=== PATIENT | female | born 1980 | race Two or more races ===

== ENCOUNTER 2017-02-01 17:02 | Emergency (ER) | payer MEDICAID ==
[2017-02-01 17:19] VITALS: BP 108/66
--- NOTE | 2017-02-01 17:26 | ER Document Report ---
ED Medical Screen (RME) - General Chief Complaint: Vaginal Bleeding Stated Complaint: VAGINAL BLEEDING Notes: 36-year-old female patient is 10 weeks started this afternoon with vaginal bleeding and pelvic pain. I have greeted and performed a rapid initial assessment of this patient. A comprehensive ED assessment and evaluation of the patient, analysis of test results and completion of the medical decision making process will be conducted by additional ED providers. TRAVEL OUTSIDE OF THE [place] IN LAST 30 DAYS: No - Related Data Allergies/Adverse Reactions: No Known Allergies Allergy (Unverified 02/01/17 17:16) Past Medical History Renal/ Medical History: Denies: Hx Peritoneal Dialysis Physical Exam - Vital signs Vitals: Temp Pulse Resp BP Pulse Ox 97.9 F 79 18 108/66 99 02/01/17 17:16 02/01/17 17:16 02/01/17 17:16 02/01/17 17:16 02/01/17 17:16 Course - Vital Signs Vital signs: Temp Pulse Resp BP Pulse Ox 97.9 F 79 18 108/66 99 02/01/17 17:16 02/01/17 17:16 02/01/17 17:16 02/01/17 17:16 02/01/17 17:16
[2017-02-01 17:52] LABS: ABSOLUTE LYMPHOCYTES (AUTO) 2.3 10^3/uL (0.5-4.7); ABSOLUTE MONOCYTES (AUTO) 0.5 10^3/uL (0.1-1.4); ABSOLUTE NEUT (AUTO) 6.2 10^3/uL (1.7-8.2); BASOPHILS % (AUTO) 0.2 % (0-2); EOSINOPHILS % (AUTO) 0.5 % (0-6); HEMATOCRIT 35.1 % (36.0-47.0); HEMOGLOBIN 11.9 g/dL (12.0-15.5); HGB HCT DIFFERENCE 0.6; LYMPHOCYTES % (AUTO) 25.1 % (13-45); MEAN CORPUSCULAR HEMOGLOBIN 28.5 pg (27.0-33.4); MEAN CORPUSCULAR HGB CONC 33.9 g/dL (32.0-36.0); MEAN CORPUSCULAR VOLUME 84 fl (80-97); MONOCYTES % (AUTO) 5.2 % (3-13); RED BLOOD COUNT 4.16 10^6/uL (3.72-5.28); RED CELL DISTRIBUTION WIDTH 14.2 % (11.5-14.0)
[2017-02-01 17:54] LABS: APPEARANCE,URINE CLEAR; BILIRUBIN,URINE NEGATIVE (NEGATIVE); GLUCOSE, URINE NEGATIVE (NEGATIVE); KETONES,URINE NEGATIVE (NEGATIVE); LEUKOCYTE ESTERASE,URINE NEGATIVE (NEGATIVE); NITRITE,URINE NEGATIVE (NEGATIVE); PROTEIN,URINE NEGATIVE (NEGATIVE); URINE SPECIFIC GRAVITY 1.003; UROBILINOGEN,URINE NEGATIVE mg/dL (<2.0)
[2017-02-01 18:08] LABS: ALANINE AMINOTRANSFERASE 22 U/L (9-52); ALBUMIN 3.9 g/dL (3.5-5.0); ALKALINE PHOSPHATASE 78 U/L (38-126); ANION GAP 10 (5-19); ASPARTATE AMINO TRANSFERASE 17 U/L (14-36); BILIRUBIN,DIRECT 0.1 mg/dL (0.0-0.4); BILIRUBIN,TOTAL 0.4 mg/dL (0.2-1.3); BLOOD UREA NITROGEN 9 mg/dL (7-20); CALCIUM 9.3 mg/dL (8.4-10.2); CARBON DIOXIDE 23 mmol/L (22-30); CHLORIDE 106 mmol/L (98-107); CREATININE RESULT 0.59 mg/dL (0.52-1.25); GLUCOSE 85 mg/dL (75-110); POTASSIUM 3.9 mmol/L (3.6-5.0); SODIUM 139.3 mmol/L (137-145)
== END 2017-02-01 19:07 | disposition left against medical advice (07) ==
LOC: ER 17:02
DX: O20.9 Hemorrhage in early pregnancy, unspecified (principal); Z3A.10 10 weeks gestation of pregnancy
CPT/HCPCS: 36415; 80053; 81001; 84702; 85025; 86900; 86901; 99281

== ENCOUNTER 2017-02-02 18:02 | Emergency (ER) | payer SELFPAY ==
--- NOTE | 2017-02-02 19:18 | ER Document Report ---
ED GI/ - General Chief Complaint: Pelvic Pain Stated Complaint: ABDOMINAL PAIN Time seen by provider: 19:18 Mode of Arrival: Ambulatory Information source: Patient TRAVEL OUTSIDE OF THE [place] IN LAST 30 DAYS: No - HPI Patient complains to provider of: Pelvic pain Onset: Yesterday Timing/Duration: Gradual Quality of pain: Cramping Severity at maximum: Moderate Severity in ED: Moderate Pain Level: 3 Location: Pelvis Vaginal bleeding (Compared to normal period): Spotting Menstrual period history: Associated symptoms: denies: Dysuria, Fever, Nausea, Vomiting Exacerbated by: Denies Relieved by: Denies Similar symptoms previously: Yes Recently seen / treated by doctor: Yes Notes: 02/02/17 19:19 Patient is a 36-year-old female, , who presents to the emergency room reporting that she is approximately 10 weeks and having pelvic pain, she denies nausea or vomiting, no dysuria hematuria, no fever or chills, she had some vaginal spotting yesterday which has resolved, she actually came to the emergency room yesterday and left before completion of treatment, as she had to get home and take care of her kids, she has been seen at the health department during this but not by RESIDENTIAL INSTALLER yet - Related Data Allergies/Adverse Reactions: No Known Allergies Allergy (Unverified 02/01/17 17:16) Past Medical History - General Information source: Patient - Social History Smoking Status: Unknown if Ever Smoked Family History: Reviewed & Not Pertinent Patient has suicidal ideation: No Patient has homicidal ideation: No Renal/ Medical History: Denies: Hx Peritoneal Dialysis Review of Systems - Review of Systems Constitutional: No symptoms reported EENT: No symptoms reported Cardiovascular: No symptoms reported Respiratory: No symptoms reported Gastrointestinal: No symptoms reported Genitourinary: No symptoms reported Female Genitourinary: See HPI Musculoskeletal: No symptoms reported Skin: No symptoms reported Hematologic/Lymphatic: No symptoms reported Neurological/Psychological: No symptoms reported -: Yes All other systems reviewed and negative Physical Exam - Vital signs Vitals: Temp Pulse Resp BP Pulse Ox 97.8 F 93 16 104/59 L 99 02/02/17 18:26 02/02/17 18:26 02/02/17 18:26 02/02/17 18:26 02/02/17 18:26 Interpretation: Normal - General General appearance: Appears well, Alert - HEENT Head: Normocephalic, Atraumatic Eyes: Normal Pupils: PERRL - Respiratory Respiratory status: No respiratory distress Chest status: Nontender Breath sounds: Normal Chest palpation: Normal - Cardiovascular Rhythm: Regular Heart sounds: Normal auscultation Murmur: No - Abdominal Inspection: Normal Distension: No distension Bowel sounds: Normal Tenderness: Tender - Suprapubic/pelvic Organomegaly: No organomegaly - Back Back: Normal, Nontender - Extremities General upper extremity: Normal inspection, Nontender, Normal color, Normal ROM , Normal temperature General lower extremity: Normal inspection, Nontender, Normal color, Normal ROM , Normal temperature, Normal weight bearing. No: Tonja's sign - Neurological Neuro grossly intact: Yes Cognition: Normal Orientation: AAOx4 Patti Coma Scale Eye Opening: Spontaneous [place] Coma Scale Verbal: Oriented [place] Coma Scale Motor: Obeys Commands [place] Coma Scale Total: 15 Speech: Normal Motor strength normal: LUE, RUE, LLE, RLE Sensory: Normal - Psychological Associated symptoms: Normal affect, Normal mood - Skin Skin Temperature: Warm Skin Moisture: Dry Skin Color: Normal Course - Re-evaluation Re-evalutation: 02/02/17 21:07 Laboratory findings from yesterday were reviewed and discussed with patient, imaging findings discussed with patient at bedside today, are positive for IUP, good heart rate good movement, patient was given information for follow-up with [facility]IDENT[facility]STALL[facility], advised to return if symptoms worsen, with this plan - Vital Signs Vital signs: Temp Pulse Resp BP Pulse Ox 98.0 F 70 18 106/57 L 100 02/02/17 20:59 02/02/17 20:59 02/02/17 20:59 02/02/17 20:59 02/02/17 20:59 Discharge - Discharge Clinical Impression: Pelvic pain affecting Condition: Stable Disposition: HOME, SELF-CARE Instructions: Pelvic Pain in and Round Ligament Pain ([facility]), Pelvic Pain in ([facility]), Pelvic Pain ([facility]), Ob-Cab Driver Doctors Additional Instructions: Follow-up with RESIDENTIAL INSTALLER in 2-3 days. Return to the emergency room immediately if symptoms worsen or any additional concerns.
[2017-02-02 21:01] VITALS: BP 106/57
== END 2017-02-02 21:06 | disposition home or self-care (01) ==
LOC: ER 18:02
DX: O26.899 Other specified pregnancy related conditions, unspecified trimester (principal); R10.2 Pelvic and perineal pain; Z3A.00 Weeks of gestation of pregnancy not specified
CPT/HCPCS: 76801; 99284

== ENCOUNTER → 2017-04-01 | Outpatient (CLI) | payer MEDICAID ==
--- NOTE | 2017-04-01 16:32 | RADIOLOGY REPORT (SQ) ---
EXAM DESCRIPTION: U/S OB 14+ TRNABD 1GES W/O DOP COMPLETED DATE/TIME: 04/01/2017 3:58 pm REASON FOR STUDY: ENCOUNTER FOR SUPERVISION OF NORMAL Z34.82 ENCOUNTER FOR SUPRVSN OF NOR MAL , SECOND TRI COMPARISON: None. TECHNIQUE: Static and Dynamic grayscale imaging performed of gravid uterus using transabdominal and endovaginal approach. Additional selected color Doppler and spectral images recorded. All stored on PACS. LIMITATIONS: None. FINDINGS: EGA: 20 weeks 3 days MKIE: 08/16/2017 EFW: 343 g PERCENTILE: Not calculated, fetus less than or equal to 20 weeks gestation CARMEN: Adequate PLACENTA: Low lying and posterior. There is a succinturate placental lobule along the ventral aspect of the lower uterine segment. PRESENTATION: Variable ANATOMY: HEART RATE: 131 beats per minute. FOUR CHAMBER HEART: Visualized. THREE VESSEL CORD: Yes. CORD INSERTION: Visualized. KIDNEYS AND BLADDER: Visualized. Appear normal. STOMACH: Visualized. Appears normal. SPINE: Normal as visualized. BRAIN AND LATERAL VENTRICLES: Visualized. Appear normal. OTHER: No other significant finding. MATERNAL ADNEXA: Maternal ovaries not visualized. CERVICAL LENGTH: 3.5 cm in length. The patient is , the internal cervical os on endovaginal sca nning is open with mild funneling. This report was called to Zuri Shirley at the [facility] . OTHER: No other significant finding. IMPRESSION: LIVING INTRAUTERINE . ESTIMATED GESTATIONAL AGE 20 weeks 3 days Low-lying posterior placenta with succenturiate lobe anteriorly along the lower uterine segment. Funneling of the internal cervical os Results discussed with Zuri Shirley at the [facility], 1445 hours 04/01/2017 as above. Trimester of : Second trimester - 13 weeks 1 day to 27 weeks 6 days. TECHNICAL DOCUMENTATION: JOB ID: [id number] [employer]- All Rights Reserved
== END ==
LOC: RAD 13:55
PROVIDERS: ATTEND Nurse Practitioner Women's Health
DX: O44.42 Low lying placenta NOS or without hemorrhage, second trimester (principal); O43.192 Other malformation of placenta, second trimester; Z3A.20 20 weeks gestation of pregnancy
CPT/HCPCS: 76805

== ENCOUNTER → 2017-04-13 | Outpatient (CLI) | payer MEDICAID ==
--- NOTE | 2017-04-13 12:04 | RADIOLOGY REPORT (SQ) ---
EXAM DESCRIPTION: U/S OB LIMITED COMPLETED DATE/TIME: 04/13/2017 11:52 am REASON FOR STUDY: ENCOUNTER FOR SUPERVISON OF OTHER NORMAL , SECOND TRIMESTER Z34.82 ENCO UNTER FOR SUPRVSN OF NORMAL , SECOND TRI COMPARISON: 04/01/2017 TECHNIQUE: Limited transvaginal and transabdominal grayscale ultrasound for evaluation of specific r equested obstetrical parameters. LIMITATIONS: None. FINDINGS: CERVICAL LENGTH: Lower 2/3 of the cervix is closed, 3 cm in length. Upper 3rd of the cerv ix demonstrates fluid at the internal os without funneling, similar compared to 04/01/2017. Posterior placenta grade 1 extends up to the internal cervical os without previa. FHR: 147 beats per minute. PRESENTATION: Breech, mobile OTHER: No other significant findings. IMPRESSION: The lower 2/3 of the cervix is closed, 3 cm in length. Upper 3rd of the cervix demonstr ates fluid or mucous at the internal os without funneling. No ultrasound evidence of placenta previa Fetus variable orientation Trimester of : Third trimester - 28 weeks to delivery. TECHNICAL DOCUMENTATION: JOB ID: [id number] [employer]- All Rights Reserved
== END ==
LOC: RAD 10:32
PROVIDERS: ATTEND Nurse Practitioner Women's Health
DX: Z34.82 Encounter for supervision of other normal pregnancy, second trimester (principal)
CPT/HCPCS: 76815

== ENCOUNTER 2017-08-11 22:28 | Inpatient (IN) | payer MEDICAID ==
[2017-08-11 23:26] LABS: APPEARANCE,URINE CLEAR; BILIRUBIN,URINE NEGATIVE (NEGATIVE); GLUCOSE, URINE NEGATIVE (NEGATIVE); KETONES,URINE NEGATIVE (NEGATIVE); LEUKOCYTE ESTERASE,URINE NEGATIVE (NEGATIVE); NITRITE,URINE NEGATIVE (NEGATIVE); PROTEIN,URINE NEGATIVE (NEGATIVE); URINE SPECIFIC GRAVITY 1.004; UROBILINOGEN,URINE NEGATIVE mg/dL (<2.0)
[2017-08-11 23:43] LABS: URINE BARBITURATES SCREEN NEGATIVE; URINE METHADONE SCREEN NEGATIVE; URINE OPIATES LOW NEGATIVE; URINE PHENCYCLIDINE SCREEN NEGATIVE
[2017-08-12] MEDS ORDERED: OXYTOCIN/NORMAL SALINE 0 UNIT/0 ML RTUINJ ONE (02:20)
[2017-08-12] MEDS ORDERED: OXYTOCIN/NORMAL SALINE 20 UNIT/1,000 ML RTUINJ IV PRN ×2 (02:23→10:35)
[2017-08-12 02:51] LABS: HEMATOCRIT 32.8 % (36.0-47.0); HEMOGLOBIN 11.3 g/dL (12.0-15.5); HGB HCT DIFFERENCE 1.1; MEAN CORPUSCULAR HEMOGLOBIN 29.5 pg (27.0-33.4); MEAN CORPUSCULAR HGB CONC 34.6 g/dL (32.0-36.0); MEAN CORPUSCULAR VOLUME 85 fl (80-97); RED BLOOD COUNT 3.84 10^6/uL (3.72-5.28); RED CELL DISTRIBUTION WIDTH 14.7 % (11.5-14.0); WHITE BLOOD COUNT 9.8 10^3/uL (4.0-10.5)
[2017-08-12] MEDS ORDERED: EPHEDRINE SULFATE INJ 50 MG/1 ML AMPULE ONE (03:10)
[2017-08-12] MEDS ORDERED: FENTANYL/BUPIVACAINE/NS/PF 200 MCG/100 ML RTUINJ EPI ONE (03:11)
[2017-08-12] MEDS ORDERED: BUPIVACAINE HCL 0.25 % INJ/PF (2.5 MG/1 ML) 30 ML VIAL ONE (03:11)
[2017-08-12 03:14] LABS: BAND NEUTROPHILS % (MANUAL) 2 % (3-5); BASOPHILS % (MANUAL) 0 % (0-2); EOSINOPHILS % (MANUAL) 0 % (0-6); LYMPHOCYTES % (MANUAL) 32 % (13-45); TOTAL CELLS COUNTED 100
[2017-08-12 03:17] LABS: ANISOCYTOSIS SLIGHT; POLYCHROMASIA SLIGHT; TOXIC GRANULATION SLIGHT; TOXIC VACUOLATION PRESENT
[2017-08-12] MEDS: RINGERS SOLUTION,LACTATED 1,000 ML IV PRN ×2 (04:21→04:30)
[2017-08-12] MEDS ORDERED: MISOPROSTOL 0.2 MG TABLET ONE (05:42)
[2017-08-12] MEDS ORDERED: LIDOCAINE 1% INJ-PF (10 MG/ML) 30 ML SDV ONE (05:42)
[2017-08-12] MEDS ORDERED: OXYTOCIN/NORMAL SALINE 20 UNIT/1,000 ML RTUINJ ONE (05:43)
[2017-08-12] MEDS ORDERED: DEXTROSE 5%-LACTATED RINGERS 200 ML IV PRN (05:58)
[2017-08-12] MEDS ORDERED: PENICILLIN G-K 5 MILLION UNIT VIAL ONE (08:14)
[2017-08-12] MEDS ORDERED: IBUPROFEN 800 MG TABLET ONE (09:41)
--- NOTE | 2017-08-12 10:07 | Delivery Summary ---
Del Sum A-C Datetime Report Generated by CPN: 08/12/2017 10:07 DELIVERY PERSONNEL DELIVERY PERSONNEL: [id number] Delivery Doctor:: Karla Kate CNM Labor and Delivery Nurse:: Sunitha Sargent RNpharmacy director Nurse:: RONNIE Pruitt Student Observers:: Loretta SCOTT Early Childhood/CELLAR HAND: Nini Lujan CNA II Additional Personnel: : Estela Ray RN MATERNAL INFORMATION Delivery Anesthesia: Epidural Medications After Delivery: Pitocin Bolus-Please Comment; Cytotec 800mcg Per Rectum/Vagina Meds After Delivery Comment: Pitocin 20 units in 1000 ml nss open for bolus Estimated Blood Loss (ml): 300 Maternal Complications: None Provider Comments: SVDVM over intact perineum with epidural anesthesia. vigorous, to mothers abd. Cord clamped x2 cut per FOB, Placenta intact via [place]. Cytotec placed rectally 800mg. Apgars 9,9. EBL 300. Mother and infant stable. No lacs. GBS unknown. LABOR SUMMARY EDC: 08/18/2017 00:00 No. Babies in Womb: 1 Attempted: No Labor Anesthesia: Epidural LABOR INFORMATION Reason for Induction: Not Applicable Onset of Labor: 08/11/2017 22:00 Complete Dilatation: 08/12/2017 08:18 Oxytocin: Augmentation Group B Beta Strep: negative Antibiotics # of Doses: none Antibiotics Time of Last Dose: n/a Name of Antibiotic Given: n/a Steroids Given: None Reason Steroids Not Administered: Not Applicable; Patient Refused MEMBRANES Membranes Rupture Method: Spontaneous Rupture of Membranes: 08/12/2017 06:28 Length of Rupture (hr): 1.97 Amniotic Fluid Color: Clear Amniotic Fluid Amount: Small Amniotic Fluid Odor: Normal STAGES OF LABOR Stage 1 hr: 10 Stage 1 min: 18 Stage 2 hr: 0 Stage 2 min: 8 Stage 3 hr: 0 Stage 3 min: 6 Total Time in Labor hr: 10 Total Time in Labor min: 32 VAGINAL DELIVERY Episiotomy: None Laceration #1: None Laceration Extension #1: N/A Laceration Repair: Not Applicable Laceration Repair Note: none needed Sponge Count Correct: N/A Sharps Count Correct: N/A CSECTION DELIVERY Primary Indication: N/A Secondary Indication: N/A CSection Incidence: N/A Labor: N/A Elective: N/A CSection Incision: N/A BABY A INFORMATION Delivery Date/Time: 08/12/2017 08:26 Method of Delivery: Vaginal Born in Route : No : N/A Forceps: N/A Vacuum Extraction: Successful Shoulder Dystocia : No PRESENTATION/POSITION BABY A Presentation: Cephalic Cephalic Presentation: Vertex Vertex Position: Right Occipital Anterior Breech Presentation: N/A PLACENTA INFORMATION BABY A Placenta Delivery Time : 08/12/2017 08:32 Placenta Method of Delivery: Spontaneous Placenta Status: Delivered SCORES BABY A Heart Rate 1 min: >100 bpm Resp Effort 1 min: Good Cry Reflex Irritability 1 min: Cough or Sneeze or Pulls Away Muscle Tone 1 min: Active Motion Color 1 min: Body [place], Extremities Blue Resuscitation Effort 1 min: Tactile Stimulation SCORE 1 MIN: 9 Heart Rate 5 min: >100 bpm Resp Effort 5 min: Good Cry Reflex Irritability 5 min: Cough or Sneeze or Pulls Away Muscle Tone 5 min: Active Motion Color 5 min: Body [place], Extremities Blue Resuscitation Effort 5 min: N/A SCORE 5 MIN: 9 Resuscitation Effort 10 min: N/A INFANT INFORMATION BABY A Gestational Age at Delivery: 39.1 Gestational Status: Full Term- 39- 40.6 Weeks Infant Outcome : Liveborn Condition : Stable Sex: Male IDENTIFICATION BABY A Verification Date/Time: 08/12/2017 08:57 ID Band Number: [id number] Mother's Name Verified: Yes RN Verifying Infant: A. Sargent RN S. Camp RNC WEIGHT/LENGTH BABY A Infant Length (in): 20.00 Infant Length (cm): 50.80 CORD INFORMATION BABY A No. Cord Vessels: 3 Nuchal Cord : N/A Nuchal Cord- Other: short cord Cord Blood Taken: Yes-For Storage (Mom's Blood type +) Infant Suction: None ASSESSMENT BABY A Complications: None Physical Findings at Delivery: Within Normal Limits Respirations: Appears Normal Skin to Skin: Yes Skin to Skin Time (min): 60 Online Content Editor/ALS Called : No Infant Care By: M Cory RN Transferred To: Remains with Mother BABY B INFORMATION : N/A SIGNATURES Assignment: Yann Andre MD Signature: with User ID: [email or web address] : I was personally available for consultation and serving as supervising physician for the MLP.
[2017-08-12] MEDS ORDERED: BENZOCAINE/MENTHOL AEROSOL SPRAY 56 ML TOP PRN (10:35)
[2017-08-12] MEDS ORDERED: DIBUCAINE 1% OINTMENT 28 GM TP PRN (10:35)
[2017-08-12] MEDS ORDERED: ZOLPIDEM TARTRATE 5 MG TABLET PO PRN (10:35)
[2017-08-12] MEDS ORDERED: MEASLES,MUMPS&RUBELLA VACC/PF 0.5 ML VIAL SUBCUT PRN (10:35)
[2017-08-12] MEDS ORDERED: DIPH/PERTUSS(ACELL)/TETANUS VAC/PF 0.5 ML SYR (>=10YO) IM PRN (10:35)
[2017-08-12] MEDS ORDERED: ACETAMINOPHEN WITH CODEINE #3 TABLET PO PRN (10:35)
--- NOTE | 2017-08-12 11:11 | Admission Physical ---
Datetime Report Generated by CPN: 08/12/2017 11:10 CURRENT ADMISSION Chief Complaint: Uterine Contractions Indication for Induction: Not Applicable Indication for Induction: Term, Intrauterine Admit Impression- Other: keep for Augmentation as patient is a grandmultip and lives >15 min from hospital. concern for precipitous delivery Admit Plan: Admit to Unit; Initiate Labor Augmentation Protocol ALLERGIES Medication Allergies: No Medication Allergies: No Known Allergies (08/12/2017) Medication Allergies: No Known Allergies (02/01/2017) Latex: No Latex Allergies Food Allergies: N/A Environmental Allergies: N/A OBSTETRICAL HISTORY EDC: 08/18/2017 00:00 : 7 Para: 5 Term: 5 SAB: 1 Livin Cesareans: 0 Gestational Diabetes: No Rh Sensitization: No Incompetent Cervix: No MANGO: No Infertility: No ART Treatment: No Uterine Anomaly: No IUGR: No Hx Previous C/S: No Macrosomia: No Hx Loss/Stillborn: No PIH: No Hx : No Placenta Previa/Abruption: No Depression/PP Depression: No PTL/PROM: No Post Hemorrhage: No Current Procedures: Ultrasound Obstetrical History Comments: G1- G2- G3- G4- SAB G5- G6- G7- current SEE RECORDS Alcohol: No Marijuana : No Cocaine: No Other Illicit Drugs: No Cigarettes: Never Smoker. [id number] MEDICAL HISTORY Diabetes: No Blood Transfusion: No Pulmonary Disease (Asthma, TB): No Breast Disease: No Hypertension: No Surgery Consultant Surgery: No Heart Disease: No Hosp/Surgery: No Autoimmune Disorder: No Anesthetic Complications: No Kidney Disease: No Abnormal Pap Smear: No Neuro/Epilepsy: No Psychiatric Disorders: No Other Medical Diseases: No Hepatitis/Liver Disease: No Significant Family History: No Varicosities/Phlebitis: No Trauma/Violence : No Thyroid Dysfunction: No Medical History Comments: Gallbladder removal 2012 INFECTIOUS HISTORY Gonorrhea: No Genital Herpes: No Chlamydia: No Tuberculosis: No Syphilis: No Hepatitis: No HIV/AIDS Exposure: No Rash or Viral Illness: No HPV: No PHYSICAL EXAM General: Normal HEENT: Normal Neurologic: Normal Thyroid: Normal Heart: Normal Lungs: Normal Breast: Normal Back: Normal Abdomen: Normal Genitourinary Exam: Normal Extremities: Normal DTRs: Normal Pelvic Type: Adequate Vital Signs: Reviewed VAGINAL EXAM Dilatation: 4 Effacement: 50 Station: -2 MEMBRANES Pooling: Negative Membranes: Intact FETUS A EGA: 39.1 Monitoring: External US FHR- Baseline: 140 Variability: Moderate 6-25bpm Accelerations: 15X15 FHR Category: Category I Estimated Weight (gm): 3500 Presentation: Vertex PLANS FOR LABOR AND DELIVERY Labor and Delivery: None Pain Management: Epidural Feeding Preference: Both Benefit of Breast Feed Discussed: Yes Circumcision: No INFORMED CONSENT Signature: with User ID: [email or web address]
[2017-08-12] MEDS: IBUPROFEN 800 MG TABLET PO SCH ×2 (14:16→21:30)
[2017-08-12] MEDS: DOCUSATE SODIUM 100 MG CAPSULE PO SCH (17:56)
[2017-08-12] MEDS: FERROUS SULFATE 325 MG TABLET PO SCH (17:57)
[2017-08-13] MEDS: ACETAMINOPHEN WITH CODEINE #3 TABLET PO PRN ×2 (02:11→09:06)
[2017-08-13] MEDS: IBUPROFEN 800 MG TABLET PO SCH ×3 (05:48→21:24)
[2017-08-13 06:55] LABS: HEMATOCRIT 33.1 % (36.0-47.0); HGB HCT DIFFERENCE -0.1; MEAN CORPUSCULAR HEMOGLOBIN 28.7 pg (27.0-33.4); MEAN CORPUSCULAR HGB CONC 33.3 g/dL (32.0-36.0); MEAN CORPUSCULAR VOLUME 86 fl (80-97); RED BLOOD COUNT 3.85 10^6/uL (3.72-5.28); RED CELL DISTRIBUTION WIDTH 14.6 % (11.5-14.0); WHITE BLOOD COUNT 8.7 10^3/uL (4.0-10.5)
[2017-08-13] MEDS: PRENATAL VITAMIN W-O CA NO5/FE FUMARATE/FA CAPSULE PO SCH (09:07)
[2017-08-13] MEDS: FERROUS SULFATE 325 MG TABLET PO SCH ×2 (09:07→18:08)
[2017-08-13] MEDS: DOCUSATE SODIUM 100 MG CAPSULE PO SCH ×2 (09:07→18:08)
[2017-08-13] MEDS: SENNOSIDES/DOCUSATE 8.6-50 MG 1 EACH TABLET PO SCH (09:07)
--- NOTE | 2017-08-13 14:20 | PDOC PROGRESS REPORT ---
Subjective-OB Subjective: Post Delivery Day:1 37 year old G7 now P6 s/p ppd1. Ambulating and without difficulty. Denies any needs at this time Physical Exam (OB) Vital Signs: Temp Pulse Resp BP Pulse Ox 97.5 F 55 L 15 93/50 L 100 08/13/17 08:07 08/13/17 08:07 08/13/17 08:07 08/13/17 08:07 08/13/17 08:07 Intake & Output 08/12/17 08/13/17 08/14/17 06:59 06:59 06:59 Intake Total 200 Balance 200 Weight 82.4 kg - General General Appearance: Appears well In distress: None - PIH/Pre-Eclampsia DTR's: 2 + Clonus: Negative Headache: Absent Epigastric Pain: No Visual Changes: No - Episiotomy/Laceration Site Condition: N/A - Lochia Lochia Amount: Small 10-25 ml Lochia Color: Rubra/Red - Abdomen Description: Soft, Flat Hernia Present: No Fundal Description: Firm, Midline Fundal Height: u/u - u/2 - Respiratory Respiratory Status: No respiratory distress - Extremities Upper extremity: Normal inspection Lower extremities: Normal inspection - Neurological Cognition: Normal Orientation: AAOx4 - Psychological Associated symptoms: Normal affect, Normal mood Objective-Diagnostic Laboratory: 08/13/17 06:42 08/13/17 06:42 WBC 8.7 RBC 3.85 Hgb 11.0 L Hct 33.1 L MCV 86 MCH 28.7 MCHC 33.3 RDW 14.6 H Plt Count 172 Assessment and Plan(PN) - Assessment and Plan (1) Vaginal delivery Is this a current diagnosis for this admission?: Yes Plan: routine pp care - Time Spent with Patient Time with patient: Less than 15 minutes - Disposition Within: within 24 hours
[2017-08-14] MEDS: ACETAMINOPHEN WITH CODEINE #3 TABLET PO PRN (00:01)
[2017-08-14] MEDS: IBUPROFEN 800 MG TABLET PO SCH (05:25)
[2017-08-14 08:22] VITALS: BP 87/53
[2017-08-14] MEDS: PRENATAL VITAMIN W-O CA NO5/FE FUMARATE/FA CAPSULE PO SCH (10:18)
[2017-08-14] MEDS: DOCUSATE SODIUM 100 MG CAPSULE PO SCH (10:18)
[2017-08-14] MEDS: SENNOSIDES/DOCUSATE 8.6-50 MG 1 EACH TABLET PO SCH (10:18)
[2017-08-14] MEDS: FERROUS SULFATE 325 MG TABLET PO SCH (10:18)
[2017-08-14] MEDS ORDERED: MEDROXYPROGESTERONE ACET INJ 150 MG/1 ML VIAL IM ONE (10:26)
--- NOTE | 2017-08-14 10:27 | PDOC DISCHARGE SUMMARY ---
Final Diagnosis Discharge Date: 08/14/17 - Final Diagnosis (1) Grand multiparity in labor and delivery, delivered Is this a current diagnosis for this admission?: Yes (2) Vaginal delivery Is this a current diagnosis for this admission?: Yes Discharge Data - Discharge Medication Home Medications: No Home Medications 08/12/17 Reason(s) for Admission: Onset of Labor Procedures: None Intrapartum Procedure(s): Spontaneous Vaginal Delivery - Diagnosis Test Laboratory: Temp Pulse Resp BP Pulse Ox 97.5 F 54 L 17 87/53 L 100 08/14/17 08:17 08/14/17 08:17 08/14/17 08:17 08/14/17 08:17 08/14/17 08:17 08/11/17 08/12/17 08/13/17 22:44 02:35 06:42 RBC 3.84 3.85 Hgb 11.3 L 11.0 L Hct 32.8 L 33.1 L Urine Opiates Screen NEGATIVE - Discharge information/Instructions Discharge Activity: Activity As Tolerated, No Lifting Over 10 Pounds, Pelvic Rest, No tub bath Discharge Diet: Regular Disposition: HOME, SELF-CARE Follow up with: [facility] in: 4 - depo 150 mg im x 1 prior to discharge instructions given in slovak
== END 2017-08-14 12:59 | disposition home or self-care (01) | DRG 775 ==
LOC: LC 22:28 → LR 08-12 02:21 → 2S 08-12 10:40
PROVIDERS: ADMIT Obstetrics & Gynecology; ATTEND Obstetrics & Gynecology
PROC: 10E0XZZ Delivery of Products of Conception, External Approach (ICD-10-PCS; principal; 2017-08-12)
DX: O69.3XX0 Labor and delivery complicated by short cord, not applicable or unspecified (principal); O99.214 Obesity complicating childbirth; E66.9 Obesity, unspecified; Z3A.39 39 weeks gestation of pregnancy; Z37.0 Single live birth; Z68.33 Body mass index [BMI] 33.0-33.9, adult
CPT/HCPCS: 36415; 80307; 81005; 85025; 85027; 86592; 86850; 86900; 86901; J1050; J2540; J2590; J3490

== ENCOUNTER 2017-10-17 12:51 | Emergency (ER) | payer SELFPAY ==
--- NOTE | 2017-10-17 14:13 | ER Document Report ---
ED Medical Screen (RME) - General Chief Complaint: Vaginal Bleeding Stated Complaint: ABDOMINAL PAIN,VAGINAL BLEEDING Time Seen by Provider: 10/17/17 14:08 Notes: This 37-year-old female patient delivered on 08/12/2017. She reports she has been bleeding with clots since then. She reports calling [facility] 3 weeks ago and was told it was normal. She has had lower abdominal pain for the past 3 days. I have greeted and performed a rapid initial assessment of this patient. A comprehensive ED assessment and evaluation of the patient, analysis of test results and completion of the medical decision making process will be conducted by additional ED providers. TRAVEL OUTSIDE OF THE [place] IN LAST 30 DAYS: No - Related Data Allergies/Adverse Reactions: No Known Allergies Allergy (Verified 10/17/17 12:54) Home Medications: Current Home Medications No Home Medications 10/17/17 [History] Past Medical History - Social History Chew tobacco use (# tins/day): No Frequency of alcohol use: None Drug Abuse: None Renal/ Medical History: Denies: Hx Peritoneal Dialysis - Immunizations Hx Diphtheria, Pertussis, Tetanus Vaccination: No History of Influenza Vaccine for 07/2017 - 12/2017 Season: Yes Influenza Administration Date for 07/2017 - 12/2017 Season: 07/18/17 Physical Exam - Vital signs Vitals: Temp Pulse Resp BP Pulse Ox 99.0 F 68 18 99/57 L 98 10/17/17 13:27 10/17/17 13:27 10/17/17 13:27 10/17/17 13:27 10/17/17 13:27 Course - Vital Signs Vital signs: Temp Pulse Resp BP Pulse Ox 99.0 F 68 18 99/57 L 98 10/17/17 13:27 10/17/17 13:27 10/17/17 13:27 10/17/17 13:27 10/17/17 13:27
--- NOTE | 2017-10-17 14:44 | ER Document Report ---
ED GI/ - General Chief Complaint: Vaginal Bleeding Stated Complaint: ABDOMINAL PAIN,VAGINAL BLEEDING Time Seen by Provider: 10/17/17 14:08 Mode of Arrival: Ambulatory Information source: Patient TRAVEL OUTSIDE OF THE [place] IN LAST 30 DAYS: No - HPI Patient complains to provider of: Pelvic pain, Vaginal bleeding Onset: Other - 08/12 (POST-) BEGAN BLEEDING, PAIN ONSET 3 DAYS AGO. Timing/Duration: Persistent, Waxing and waning Quality of pain: Burning, Other - "PINCHING" Severity at maximum: Moderate Severity in ED: Mild Context: denies: - DELIVERED 08/12, NO POST- F/U Vaginal bleeding (Compared to normal period): Similar Menstrual period history: Irregular Sexual history: Active Associated symptoms: Nausea, Sweaty. denies: Chills, Fever Exacerbated by: Denies Relieved by: Denies Similar symptoms previously: No Recently seen / treated by doctor: No - Related Data Allergies/Adverse Reactions: No Known Allergies Allergy (Verified 10/17/17 12:54) Home Medications: Current Home Medications No Home Medications 10/17/17 [History] Past Medical History - General Information source: Patient - Social History Smoking Status: Never Smoker Cigarette use (# per day): No Chew tobacco use (# tins/day): No Frequency of alcohol use: None Drug Abuse: None Lives with: Family Family History: Reviewed & Not Pertinent Patient has suicidal ideation: No Patient has homicidal ideation: No - Past Medical History Cardiac Medical History: Reports: None Pulmonary Medical History: Reports: None EENT Medical History: Reports: None Neurological Medical History: Reports: None Endocrine Medical History: Reports: None Renal/ Medical History: Reports: None. Denies: Hx Peritoneal Dialysis Malignancy Medical History: Reports: None GI Medical History: Reports: None Musculoskeltal Medical History: Reports None Psychiatric Medical History: Reports: None Surgical Hx: Negative - Immunizations Hx Diphtheria, Pertussis, Tetanus Vaccination: No Review of Systems - Review of Systems Constitutional: No symptoms reported EENT: No symptoms reported Cardiovascular: No symptoms reported Respiratory: No symptoms reported Gastrointestinal: No symptoms reported Genitourinary: No symptoms reported Female Genitourinary: See HPI Musculoskeletal: No symptoms reported Skin: No symptoms reported Neurological/Psychological: No symptoms reported Physical Exam - Vital signs Vitals: Temp Pulse Resp BP Pulse Ox 99.0 F 68 18 99/57 L 98 10/17/17 13:27 10/17/17 13:27 10/17/17 13:27 10/17/17 13:27 10/17/17 13:27 Interpretation: Hypotensive. No: Tachycardic, Tachypneic, Febrile - General General appearance: Appears well, Alert In distress: None - HEENT Head: Normocephalic Eyes: Normal. No: Pale conjunctiva Conjunctiva: Normal Ears: Normal Nasal: Normal Mouth/Lips: Normal Mucous membranes: Normal Pharynx: Normal Neck: Normal - Respiratory Respiratory status: No respiratory distress - Cardiovascular Rhythm: Regular - Abdominal Inspection: Normal Distension: No distension Bowel sounds: Normal - Genitourinary External exam: Normal Speculum exam: Cervix open - 1 cm, CISSE-COLORED TISSUE SEEN IN CERVICAL CANAL Vaginal bleeding: Mild Bimanuel exam: Cervical motion tender - Extremities General upper extremity: Normal inspection General lower extremity: Normal inspection - Neurological Neuro grossly intact: Yes Cognition: Normal Orientation: AAOx4 - Psychological Associated symptoms: Normal affect, Normal mood - Skin Skin Temperature: Warm Skin Moisture: Dry Skin Color: Normal Skin Turgor: Elastic Course - Vital Signs Vital signs: Temp Pulse Resp BP Pulse Ox 99.0 F 68 18 99/57 L 98 10/17/17 13:27 10/17/17 13:27 10/17/17 13:27 10/17/17 13:27 10/17/17 13:27 - Laboratory Result Diagrams: 10/17/17 14:33 10/17/17 14:33 Laboratory results interpreted by me: 10/17/17 10/17/17 14:33 15:00 ALT 57 H Urine Blood LARGE H - Diagnostic Test Radiology reviewed: Reports reviewed - Consults DR. WEBB Time consulted: 16:16 Consulted provider: follow-up in office Discharge - Discharge Clinical Impression: Metrorrhagia Condition: Stable Disposition: HOME, SELF-CARE Instructions: Vaginal Bleeding ([facility]) Additional Instructions: REST, DRINK PLENTY OF FLUIDS. YOU MAY TAKE TYLENOL OR IBUPROFEN IF NEEDED FOR PAIN CONTROL. FOLLOW UP WEDNESDAY OR WEDNESDAY WITH [facility], CALL OFFICE AFTER 8 A.M. WEDNESDAY FOR APPOINTMENT. RETURN TO E.R. IF YOU GET WORSE ANY TIME. Referrals: PERRY WEBB MD [ACTIVE STAFF] - 10/19/17
[2017-10-17 14:56] LABS: ABSOLUTE EOSINOPHILS # (AUTO) 0.1 10^3/uL (0.0-0.6); ABSOLUTE LYMPHOCYTES (AUTO) 2.4 10^3/uL (0.5-4.7); ABSOLUTE MONOCYTES (AUTO) 0.5 10^3/uL (0.1-1.4); ABSOLUTE NEUT (AUTO) 5.7 10^3/uL (1.7-8.2); BASOPHILS % (AUTO) 0.3 % (0-2); EOSINOPHILS % (AUTO) 1.4 % (0-6); HEMATOCRIT 37.2 % (36.0-47.0); HEMOGLOBIN 12.4 g/dL (12.0-15.5); LYMPHOCYTES % (AUTO) 27.3 % (13-45); MEAN CORPUSCULAR HEMOGLOBIN 28.3 pg (27.0-33.4); MEAN CORPUSCULAR HGB CONC 33.3 g/dL (32.0-36.0); MEAN CORPUSCULAR VOLUME 85 fl (80-97); MONOCYTES % (AUTO) 5.7 % (3-13); PLATELET COUNT 320 10^3/uL (150-450); RED BLOOD COUNT 4.37 10^6/uL (3.72-5.28); RED CELL DISTRIBUTION WIDTH 13.8 % (11.5-14.0); SEGMENTED NEUTROPHILS % (AUTO) 65.3 % (42-78); TOTAL CELLS COUNTED % (AUTO) 100 %; WHITE BLOOD COUNT 8.8 10^3/uL (4.0-10.5)
[2017-10-17 15:04] LABS: INTERNATIONAL RATION (INR) 0.94; PROTHROMBIN TIME 13.2 SEC (11.4-15.4)
[2017-10-17 15:14] LABS: ALANINE AMINOTRANSFERASE 57 U/L (9-52); ALBUMIN 4.1 g/dL (3.5-5.0); ALKALINE PHOSPHATASE 113 U/L (38-126); ANION GAP 11 (5-19); ASPARTATE AMINO TRANSFERASE 29 U/L (14-36); BILIRUBIN,DIRECT 0.2 mg/dL (0.0-0.4); BILIRUBIN,TOTAL 0.2 mg/dL (0.2-1.3); BLOOD UREA NITROGEN 12 mg/dL (7-20); CALCIUM 9.6 mg/dL (8.4-10.2); CARBON DIOXIDE 26 mmol/L (22-30); CHLORIDE 107 mmol/L (98-107); GLUCOSE 94 mg/dL (75-110); POTASSIUM 4.3 mmol/L (3.6-5.0); SODIUM 143.8 mmol/L (137-145); TOTAL PROTEIN 7.7 g/dL (6.3-8.2)
--- NOTE | 2017-10-17 15:53 | RADIOLOGY REPORT (SQ) ---
EXAM DESCRIPTION: U/S NON-OB PELVIS TV W/O DOP COMPLETED DATE/TIME: 10/17/2017 3:44 pm REASON FOR STUDY: bleeding w/clots since delivery 08/12/2017 COMPARISON: None. TECHNIQUE: Dynamic and static grayscale images acquired of the pelvis via transvaginal approach and recorded on PACS. Additional selected color Doppler and spectral images recorded. LIMITATIONS: None. FINDINGS: UTERUS: Contour normal. No mass. ENDOMETRIAL STRIPE: No focal or generalized thickening. No masses. CERVIX: No nabothian cysts. RIGHT OVARY: No abnormal masses. RIGHT OVARY DOPPLER: Normal arterial vascular flow without evidence for torsion. LEFT OVARY: Ovary not visualized. LEFT OVARY DOPPLER: Ovary not visualized. FREE FLUID: None noted. OTHER: No other significant finding. MEASUREMENTS: UTERUS: 7.3 X 5.3 X 4.7 CM. ENDOMETRIAL STRIPE: 6 MM. RIGHT OVARY: 2.8 X 0.7 X 0.8 CM. LEFT OVARY: Not visualized. IMPRESSION: NORMAL TRANSVAGINAL PELVIC ULTRASOUND. LEFT OVARY NOT VISUALIZED. TECHNICAL DOCUMENTATION: JOB ID: [id number]- All Rights Reserved
[2017-10-17 15:55] LABS: APPEARANCE,URINE CLEAR; BILIRUBIN,URINE NEGATIVE (NEGATIVE); COLOR,URINE YELLOW; GLUCOSE, URINE NEGATIVE (NEGATIVE); KETONES,URINE NEGATIVE (NEGATIVE); LEUKOCYTE ESTERASE,URINE NEGATIVE (NEGATIVE); NITRITE,URINE NEGATIVE (NEGATIVE); PROTEIN,URINE NEGATIVE (NEGATIVE); URINE SPECIFIC GRAVITY 1.011; UROBILINOGEN,URINE NEGATIVE mg/dL (<2.0)
[2017-10-17 15:57] LABS: RBCS (WET MOUNT) FEW RBCS SEEN; T.VAGINALIS (WET MOUNT) NO TRICHOMONAS SEEN; WBCS (WET MOUNT) RARE WBCS SEEN; YEAST (WET MOUNT) NO YEAST SEEN
[2017-10-17 17:22] LABS: CHLAM PCR NOT DETECTED (NOT DETECT); GON PCR NOT DETECTED (NOT DETECT)
[2017-10-17 17:35] VITALS: BP 102/43
== END 2017-10-17 17:35 | disposition home or self-care (01) ==
LOC: ER 12:51
DX: N92.1 Excessive and frequent menstruation with irregular cycle (principal); N93.9 Abnormal uterine and vaginal bleeding, unspecified; R10.9 Unspecified abdominal pain; R10.2 Pelvic and perineal pain
CPT/HCPCS: 36415; 76830; 80053; 81001; 84703; 85025; 85610; 87210; 87491; 87591; 99284

== ENCOUNTER 2018-12-06 19:26 | Emergency (ER) | payer SELFPAY ==
--- NOTE | 2018-12-06 22:12 | ER Document Report ---
ED Medical Screen (RME) - General Chief Complaint: Vaginal Bleeding Stated Complaint: BACK/STOMACH PAIN Time Seen by Provider: 12/06/18 22:05 Mode of Arrival: Ambulatory Information source: Patient Notes: Patient is an otherwise healthy 38-year-old female who presents with chief complaint of left-sided back, flank and abdominal pain with nausea. She also reports she is 6 weeks has been having some vaginal bleeding. Patient denies any fevers, vomiting or diarrhea. Exam: Tenderness to palpation to left paraspinous area in the lumbar region with radiation around to the left lower quadrant of the abdomen. I have greeted and performed a rapid initial assessment of this patient. A comprehensive ED assessment and evaluation of the patient, analysis of test results and completion of the medical decision making process will be conducted by additional ED providers. Dictation of this chart was performed using voice recognition software; therefore, there may be some unintended grammatical errors. TRAVEL OUTSIDE OF THE [place] IN LAST 30 DAYS: No - Related Data Allergies/Adverse Reactions: No Known Allergies Allergy (Verified 10/17/17 12:54) Past Medical History Renal/ Medical History: Denies: Hx Peritoneal Dialysis - Immunizations Hx Diphtheria, Pertussis, Tetanus Vaccination: No History of Influenza Vaccine for 07/2017 - 12/2017 Season: Yes Influenza Administration Date for 07/2017 - 12/2017 Season: 07/18/17 Physical Exam - Vital signs Vitals: Temp Pulse Resp BP Pulse Ox 98.2 F 73 18 102/60 100 12/06/18 19:27 12/06/18 19:27 12/06/18 19:27 12/06/18 19:27 12/06/18 19:27 Course - Vital Signs Vital signs: Temp Pulse Resp BP Pulse Ox 98.2 F 68 16 103/57 L 100 12/06/18 19:27 12/06/18 21:27 12/06/18 21:27 12/06/18 21:27 12/06/18 21:27
[2018-12-06 22:38] LABS: ABSOLUTE EOSINOPHILS # (AUTO) 0.1 10^3/uL (0.0-0.6); ABSOLUTE MONOCYTES (AUTO) 0.5 10^3/uL (0.1-1.4); ABSOLUTE NEUT (AUTO) 4.9 10^3/uL (1.7-8.2); BASOPHILS % (AUTO) 0.2 % (0-2); EOSINOPHILS % (AUTO) 0.7 % (0-6); HEMATOCRIT 36.3 % (36.0-47.0); HEMOGLOBIN 12.2 g/dL (12.0-15.5); LYMPHOCYTES % (AUTO) 35.7 % (13-45); MEAN CORPUSCULAR HEMOGLOBIN 28.5 pg (27.0-33.4); MEAN CORPUSCULAR HGB CONC 33.7 g/dL (32.0-36.0); MEAN CORPUSCULAR VOLUME 85 fl (80-97); MONOCYTES % (AUTO) 6.3 % (3-13); PLATELET COUNT 268 10^3/uL (150-450); RED BLOOD COUNT 4.28 10^6/uL (3.72-5.28); RED CELL DISTRIBUTION WIDTH 13.6 % (11.5-14.0); SEGMENTED NEUTROPHILS % (AUTO) 57.1 % (42-78); TOTAL CELLS COUNTED % (AUTO) 100 %; WHITE BLOOD COUNT 8.5 10^3/uL (4.0-10.5)
[2018-12-06 23:04] LABS: ALANINE AMINOTRANSFERASE 16 U/L (9-52); ALBUMIN 4.5 g/dL (3.5-5.0); ALKALINE PHOSPHATASE 94 U/L (38-126); ANION GAP 12 (5-19); ASPARTATE AMINO TRANSFERASE 23 U/L (14-36); BILIRUBIN,DIRECT 0.2 mg/dL (0.0-0.4); BILIRUBIN,TOTAL 0.3 mg/dL (0.2-1.3); BLOOD UREA NITROGEN 12 mg/dL (7-20); CALCIUM 9.3 mg/dL (8.4-10.2); CARBON DIOXIDE 24 mmol/L (22-30); CHLORIDE 104 mmol/L (98-107); GLUCOSE 91 mg/dL (75-110); POTASSIUM 4.1 mmol/L (3.6-5.0); SODIUM 139.6 mmol/L (137-145); TOTAL PROTEIN 7.7 g/dL (6.3-8.2)
[2018-12-06 23:21] LABS: APPEARANCE,URINE CLEAR; BILIRUBIN,URINE NEGATIVE (NEGATIVE); COLOR,URINE STRAW; GLUCOSE, URINE NEGATIVE (NEGATIVE); KETONES,URINE NEGATIVE (NEGATIVE); LEUKOCYTE ESTERASE,URINE NEGATIVE (NEGATIVE); NITRITE,URINE NEGATIVE (NEGATIVE); PROTEIN,URINE NEGATIVE (NEGATIVE); URINE SPECIFIC GRAVITY 1.014; UROBILINOGEN,URINE NEGATIVE mg/dL (<2.0)
--- NOTE | 2018-12-07 00:49 | RADIOLOGY REPORT (SQ) ---
EXAM DESCRIPTION: US TRANSVAGINAL COMPLETED DATE/TME: 12/06/2018 22:09 CLINICAL HISTORY: 38 years, Female, +preg, vaginal bleed COMPARISON:None. TECHNIQUE: Grayscale and Doppler sonogram of the pelvis. Transvaginal technique was used for better evaluation of the pelvic viscera FINDINGS: The uterus measures 8.7 x 6.5 x 5.9 cm and contains a gestational sac. A yolk sac is visualized. Estimated gestational age is six weeks three days by current ultrasound. Estimated date of delivery July 30, 2019. There is a heterogeneous area within the underlying thickened endometrium concerning for subchorionic bleed measuring approximately 1.3 x 0.9 x 0.7 cm. Right ovary: Not visualized due to intervening bowel gas. Left ovary: Not visualized due to intervening bowel gas. Free fluid: None. IMPRESSION: Single intrauterine . No pole is identified. Suspect subchorionic hemorrhage.
[2018-12-07] MEDS ORDERED: ACETAMINOPHEN 325 MG TABLET PO ONE (00:50)
[2018-12-07] MEDS ORDERED: METOCLOPRAMIDE HCL 10 MG TABLET PO ONE (00:50)
--- NOTE | 2018-12-07 03:01 | ER Document Report ---
ED GI/ - General Chief Complaint: Vaginal Bleeding Stated Complaint: BACK/STOMACH PAIN Time Seen by Provider: 12/07/18 00:37 Mode of Arrival: Ambulatory Information source: Patient Notes: HISTORY OF PRESENT ILLNESS: Patient is a 38-year-old at 5-6 weeks female with no significant past medical history who presents with abdominal pain with small amount of vaginal bleeding. Location: Diffuse mid and lower abdomen Onset: Sudden Alleviation: None Provocation: Movement Quality: Cramping Radiation: None Severity: Moderate at worst, currently mild Timing: Persistent but sometimes worse/better History of abdominal surgery: None Associated symptoms: Nausea but no vomiting, no fevers or chills, no injury to her knowledge Last bowel movement: Today and normal Last menstrual period: Patient is 5-6 weeks REVIEW OF SYSTEMS: CONSTITUTIONAL : Denies fever or chills, no sweats. Denies recent illness. EENT: Denies eye, ear, throat, or mouth pain or symptoms. Denies nasal or sinus congestion. CARDIOVASCULAR: Denies chest pain. Denies swelling of the legs. RESPIRATORY: Denies cough, cold, or chest congestion. Denies shortness of breath or difficulty breathing. Denies wheezing. GASTROINTESTINAL: Positive for abdominal pain. Positive for nausea but no vomiting or diarrhea. Denies constipation. GENITOURINARY: Denies difficulty urinating, painful urination, burning, frequency, or blood in urine. FEMALE GENITOURINARY: Positive for vaginal bleeding, denies vaginal discharge. MUSCULOSKELETAL: Denies neck or back pain or joint pain or swelling. SKIN: Denies rash or skin lesions. HEMATOLOGIC : Denies easy bruising or bleeding. LYMPHATIC: Denies swollen, enlarged glands. NEUROLOGICAL: Denies altered mental status or loss of consciousness. Denies headache. Denies weakness or paralysis or loss of use of either side. Denies problems with gait or speech. Denies sensory or motor loss. PSYCHIATRIC: Denies anxiety or stress or depression. All other systems reviewed and negative. PHYSICAL EXAMINATION: GENERAL: Well-appearing, well-nourished and in no acute distress. HEAD: Atraumatic, normocephalic. No scalp deformity, depression, or crepitance. EYES: Pupils are 3 mm and equal/round/reactive to light, extraocular movements intact, sclera anicteric, conjunctiva are normal. ENT: Nares patent bilaterally, oropharynx. Moist mucous membranes. No tonsil hypertrophy. NECK: Normal range of motion, supple without lymphadenopathy. LUNGS: Breath sounds present, equal, and clear to auscultation bilaterally. No wheezes, rales, or rhonchi. HEART: Regular rate and rhythm without murmurs, rubs, or gallops. 2+ peripheral pulses. Normal capillary refill. ABDOMEN: Soft and nondistended, nontender. Normoactive bowel sounds. No guarding, no rebound. No masses appreciated. BACK: Normal contour, no midline tenderness. Rectal exam deferred. GENITAL/PELVIC: Deferred. EXTREMITIES: Normal range of motion, no pitting or edema. No cyanosis. NEUROLOGICAL: No focal neurological deficits. Moves all extremities spontaneously and on command. PSYCH: Normal mood, normal affect. No suicidal thoughts/ideations. No homocidal thoughts/ideations. No hallucinations. SKIN: Warm, dry, normal turgor, no rashes or lesions noted. ASSESSMENT AND PLAN: This patient is a 38-year-old female, at 5-6 weeks, who presents with abdominal pain and vaginal bleeding. Most likely had abdominal pain and with a threatened miscarriage. 1. Will obtain labs, urine, and pelvic ultrasound. 2. Will reassess and perform oral challenge after Reglan. TRAVEL OUTSIDE OF THE [place] IN LAST 30 DAYS: No - Related Data Allergies/Adverse Reactions: No Known Allergies Allergy (Verified 10/17/17 12:54) Past Medical History - General Information source: Patient - Social History Smoking Status: Never Smoker Chew tobacco use (# tins/day): No Frequency of alcohol use: None Drug Abuse: None Lives with: Family Family History: Reviewed & Not Pertinent Patient has suicidal ideation: No Patient has homicidal ideation: No - Past Medical History Cardiac Medical History: Reports: None Pulmonary Medical History: Reports: None EENT Medical History: Reports: None Neurological Medical History: Reports: None Endocrine Medical History: Reports: None Renal/ Medical History: Reports: None. Denies: Hx Peritoneal Dialysis Malignancy Medical History: Reports: None GI Medical History: Reports: None Musculoskeletal Medical History: Reports None Skin Medical History: Reports None Psychiatric Medical History: Reports: None Traumatic Medical History: Reports: None Infectious Medical History: Reports: None Past Surgical History: Reports: Hx Cholecystectomy - Immunizations Immunizations up to date: Yes Hx Diphtheria, Pertussis, Tetanus Vaccination: No Physical Exam - Vital signs Vitals: Temp Pulse Resp BP Pulse Ox 98.2 F 73 18 102/60 100 12/06/18 19:27 12/06/18 19:27 12/06/18 19:27 12/06/18 19:27 12/06/18 19:27 Course - Re-evaluation Re-evalutation: 12/07/18 02:58 Labs are unremarkable. Ultrasound is negative, shows intact intrauterine with no active bleeding, question possible subchorionic hemorrhage. Patient will be discharged home with return precautions and follow-up with her BODS DEVELOPER. Patient voices both understanding and agreeing with the plan. - Vital Signs Vital signs: Temp Pulse Resp BP Pulse Ox 98.2 F 75 17 104/68 99 12/07/18 03:20 12/07/18 03:20 12/07/18 03:20 12/07/18 03:20 12/07/18 03:20 - Laboratory Result Diagrams: 12/06/18 22:19 12/06/18 22:19 Laboratory results interpreted by me: 12/06/18 12/06/18 22:19 22:19 Beta HCG, Quant 7444.10 H Urine Blood MODERATE H - Diagnostic Test Radiology reviewed: Image reviewed, Reports reviewed Discharge - Discharge Clinical Impression: Abdominal pain affecting , Threatened miscarriage in early Condition: Good Disposition: HOME, SELF-CARE Instructions: Threatened Miscarriage ([facility]) Additional Instructions: You have been evaluated in the Emergency Department for abdominal pain and vaginal bleeding in the setting of being . All of your blood work was n ormal and an ultrasound shows a single with no active bleeding. Bleeding any time during has a medical term of a threatened miscarriage, however, this does not mean that you are having a miscarriage. This only means that you could be at an increased risk to have a miscarriage in the future during this . Please follow-up with your BODS DEVELOPER as instructed. Return to the Emergency Department if you experience worsening pain, worsening bleeding, or any other concerning symptoms. Prescriptions: Metoclopramide HCl [Reglan 10 mg Tablet] 1 tab PO Q8HP PRN #30 tablet PRN Reason: For Nausea/Vomiting Print Language: Persian
[2018-12-07 03:21] VITALS: BP 104/68
== END 2018-12-07 03:21 | disposition home or self-care (01) ==
LOC: ER 19:26
DX: O20.0 Threatened abortion (principal); R10.9 Unspecified abdominal pain; Z3A.01 Less than 8 weeks gestation of pregnancy
CPT/HCPCS: 36415; 76817; 80053; 81001; 84702; 85025; 86900; 86901; 99284

== ENCOUNTER 2018-12-11 17:02 | Emergency (ER) | payer SELFPAY ==
--- NOTE | 2018-12-11 18:15 | ER Document Report ---
ED Medical Screen (RME) - General Chief Complaint: Vag Bleeding, +preg <12wks Stated Complaint: ABDOMINAL PAIN, VAGINAL BLEEDING Time Seen by Provider: 12/11/18 18:11 Notes: Patient is a 38-year-old female, , approximately 6 weeks gravid that presents to the emergency department for chief complaint of vaginal bleeding and pelvic cramping. Patient reports starting to have bleeding about 5 days ago, as well as pelvic cramping, she states she is gone through 7 pads today, and is becoming more concerned about it she has also noticed clots.. ROS: Other than noted above, the 12 point review of systems was reviewed with the patient and were negative, all pertinent findings are included in the HPI. PHYSICAL EXAMINATION: Vital signs reviewed. GENERAL: She appears uncomfortable on exam HEAD: Atraumatic, normocephalic. EYES: Pupils equal round extraocular movements intact, conjunctiva are normal. ENT: Nares patent NECK: Normal range of motion CV: Heart regular rate and rhythm LUNGS: No respiratory distress Musculoskeletal: Normal range of motion abdomen: Obese, lower abdominal Mild tenderness to palpation NEUROLOGICAL: Normal speech PSYCH: Normal mood, normal affect. MDM: Patient seen and examined for rapid initial assessment. Vital signs reviewed. A comprehensive ED assessment and evaluation of the patient, analysis of test results and completion of the medical decision making process will be conducted by additional ED providers. *Note is created using voice recognition software and may contain spelling, syntax or grammatical errors. TRAVEL OUTSIDE OF THE [place] IN LAST 30 DAYS: No - Related Data Allergies/Adverse Reactions: No Known Allergies Allergy (Verified 10/17/17 12:54) Past Medical History - General Last Menstrual Period: 10/11/18 Renal/ Medical History: Denies: Hx Peritoneal Dialysis Past Surgical History: Reports: Hx Cholecystectomy - Immunizations Immunizations up to date: Yes Hx Diphtheria, Pertussis, Tetanus Vaccination: No History of Influenza Vaccine for 07/2017 - 12/2017 Season: Yes Influenza Administration Date for 07/2017 - 12/2017 Season: 07/18/17 Physical Exam - Vital signs Vitals: Temp Pulse Resp BP Pulse Ox 98.7 F 76 16 121/57 L 100 12/11/18 17:36 12/11/18 17:36 12/11/18 17:36 12/11/18 17:36 12/11/18 17:36 Course - Vital Signs Vital signs: Temp Pulse Resp BP Pulse Ox 98.7 F 76 16 121/57 L 100 12/11/18 17:36 12/11/18 17:36 12/11/18 17:36 12/11/18 17:36 12/11/18 17:36
[2018-12-11 19:52] LABS: ABSOLUTE EOSINOPHILS # (AUTO) 0.1 10^3/uL (0.0-0.6); ABSOLUTE LYMPHOCYTES (AUTO) 2.7 10^3/uL (0.5-4.7); ABSOLUTE MONOCYTES (AUTO) 0.6 10^3/uL (0.1-1.4); ABSOLUTE NEUT (AUTO) 5.9 10^3/uL (1.7-8.2); BASOPHILS % (AUTO) 0.3 % (0-2); EOSINOPHILS % (AUTO) 1.1 % (0-6); HEMATOCRIT 36.4 % (36.0-47.0); HEMOGLOBIN 12.4 g/dL (12.0-15.5); LYMPHOCYTES % (AUTO) 29.1 % (13-45); MEAN CORPUSCULAR HEMOGLOBIN 28.8 pg (27.0-33.4); MEAN CORPUSCULAR HGB CONC 34.1 g/dL (32.0-36.0); MEAN CORPUSCULAR VOLUME 84 fl (80-97); PLATELET COUNT 268 10^3/uL (150-450); RED BLOOD COUNT 4.31 10^6/uL (3.72-5.28); RED CELL DISTRIBUTION WIDTH 13.6 % (11.5-14.0); SEGMENTED NEUTROPHILS % (AUTO) 63.5 % (42-78); TOTAL CELLS COUNTED % (AUTO) 100 %; WHITE BLOOD COUNT 9.2 10^3/uL (4.0-10.5)
--- NOTE | 2018-12-11 20:02 | ER Document Report ---
ED General - General Chief Complaint: Vag Bleeding, +preg <12wks Stated Complaint: ABDOMINAL PAIN, VAGINAL BLEEDING Time Seen by Provider: 12/11/18 18:11 Notes: Patient is a 38-year-old female, , approximately 6 weeks gravid that presents to the emergency department for chief complaint of vaginal bleeding and pelvic cramping. Patient reports starting to have bleeding about 5 days ago, as well as pelvic cramping, she states she is gone through 7 pads today while at home, and for additional pads while waiting here in the ER. She is concerned because she is noted she is also passing clots. She denies any fever, chills, shortness of breath, chest pain, nausea, vomiting, diarrhea. Denies any lightheadedness, dizziness, feeling like she is going to pass out, urinary symptoms. TRAVEL OUTSIDE OF THE [place] IN LAST 30 DAYS: No - Related Data Allergies/Adverse Reactions: No Known Allergies Allergy (Verified 10/17/17 12:54) Past Medical History - General Last Menstrual Period: 10/11/18 - Social History Smoking Status: Never Smoker Family History: Reviewed & Not Pertinent Patient has suicidal ideation: No Patient has homicidal ideation: No Renal/ Medical History: Denies: Hx Peritoneal Dialysis Past Surgical History: Reports: Hx Cholecystectomy - Immunizations Immunizations up to date: Yes Hx Diphtheria, Pertussis, Tetanus Vaccination: No Review of Systems - Review of Systems Constitutional: See HPI EENT: No symptoms reported Cardiovascular: See HPI Respiratory: See HPI Gastrointestinal: See HPI Genitourinary: See HPI Female Genitourinary: See HPI Musculoskeletal: No symptoms reported Skin: No symptoms reported Hematologic/Lymphatic: No symptoms reported Neurological/Psychological: See HPI Physical Exam - Vital signs Vitals: Temp Pulse Resp BP Pulse Ox 98.7 F 76 16 121/57 L 100 12/11/18 17:36 12/11/18 17:36 12/11/18 17:36 12/11/18 17:36 12/11/18 17:36 - Notes Notes: PHYSICAL EXAMINATION: Reviewed vital signs and charting by RN GENERAL: Alert, interacts well. No acute distress. HEAD: Normocephalic, atraumatic. EYES: Pupils equal, round. Extraocular movements intact. ENT: Oral mucosa moist, tongue midline. NECK: Full range of motion. Trachea midline. LUNGS: Clear to auscultation bilaterally, no wheezes, rales, or rhonchi. No respiratory distress. HEART: Regular rate and rhythm. No murmur ABDOMEN: soft, suprapubic tenderness to palpation. Non-distended. Bowel sounds present in all 4 quadrants. EXTREMITIES: Moves all 4 extremities spontaneously. No edema, No cyanosis. NEUROLOGICAL: Alert. Normal speech. PSYCH: Normal affect, normal mood. SKIN: Warm, dry, normal turgor. No rashes or lesions noted. Course - Re-evaluation Re-evalutation: 12/11/18 20:07 Overall well-appearing 37-year-old female with heavy bleeding. Transvaginal ultrasound completed and pending lab work pending. 12/11/18 20:37 Transvaginal ultrasound showed a gestational sac without heart tones, gestational age estimated at 6 weeks 5 days.'s quantitative hCG was 4078. 12/11/18 22:[address] Ray, OB on-call, she states that yes most likely patient is miscarrying and she should follow-up in the clinic at [facility] in the morning. I asked her if we could give her Cytotec here and she said that would not be necessary. Also spoke with Dr. Wallace who agreed that patient is probably miscarrying and we can expect heavy bleeding during this process. Patient's vital signs are stable and her hemoglobin was 12.4. I gave her strict return precautions. She will discharge home. - Vital Signs Vital signs: Temp Pulse Resp BP Pulse Ox 98.7 F 76 16 121/57 L 100 12/11/18 17:36 12/11/18 17:36 12/11/18 17:36 12/11/18 17:36 12/11/18 17:36 - Laboratory Result Diagrams: 12/11/18 19:40 Laboratory results interpreted by me: 12/11/18 19:40 Beta HCG, Quant 4078.80 H Discharge - Discharge Clinical Impression: Vaginal bleeding affecting early Condition: Stable Disposition: HOME, SELF-CARE Additional Instructions: Your ultrasound today shows an intrauterine . There was no heartbeat seen but it is very early. We are very concerned that you are currently miscarrying so you can expect to have some heavy bleeding. It is important that you follow-up with [facility] first thing in the morning. Please follow closely with your primary care GEAR SHAPER SET UP OPERATOR. Please return if you develop severe abdominal pain, pass out, develop a fever greater than 101, or bleeding so heavy that you become lightheaded or feel unstable, or have any other symptoms that are concerning to you. Referrals: [facility] [Provider Group] - Follow up as needed
--- NOTE | 2018-12-11 20:27 | RADIOLOGY REPORT (SQ) ---
EXAM DESCRIPTION: US TRANSVAGINAL COMPLETED DATE/TME: 12/11/2018 18:16 CLINICAL HISTORY: 38 years, Female, vaginal bleeding, 6wks gravid COMPARISON: 12/07/2018 ultrasound TECHNIQUE: Transverse and longitudinal transvaginal sonographic images as well as transabdominal images in a first trimester patient LIMITATIONS: None. FINDINGS: The uterus measures 9.1 x 5.4 x 6.3 cm. There is a visible intrauterine gestational sac. No visible pole. The yolk sac is present. No detectable heart tones. The maternal ovaries are not well seen likely due to the position in the pelvis. A somewhat heterogeneous appearance to the lower uterine segment/cervix could reflect clot formation. Current ultrasound age is 6 weeks 5 days based on mean sac diameter of 1.79 cm. No free fluid in the pelvis IMPRESSION: There is an intrauterine gestational sac however no visible pole or detectable heart tones. A yolk sac is present. Ultrasound age is 6 weeks 5 days. Blighted ovum is not excluded, however close obstetric follow-up is recommended. Correlate with beta hCG levels. Suspected blood products in the lower uterine segment/cervix copyright 2010 [employer]- All Rights Reserved
[2018-12-11 21:10] LABS: APPEARANCE,URINE SLIGHTLY-CLOUDY; BILIRUBIN,URINE NEGATIVE (NEGATIVE); COLOR,URINE YELLOW; GLUCOSE, URINE NEGATIVE (NEGATIVE); KETONES,URINE NEGATIVE (NEGATIVE); LEUKOCYTE ESTERASE,URINE NEGATIVE (NEGATIVE); NITRITE,URINE NEGATIVE (NEGATIVE); PROTEIN,URINE NEGATIVE (NEGATIVE); URINE SPECIFIC GRAVITY 1.014; UROBILINOGEN,URINE NEGATIVE mg/dL (<2.0)
[2018-12-11] MEDS ORDERED: ACETAMINOPHEN 325 MG TABLET PO ONE (22:00)
[2018-12-11 22:39] VITALS: BP 135/82
== END 2018-12-11 22:39 | disposition home or self-care (01) ==
LOC: ER 17:02
DX: O20.9 Hemorrhage in early pregnancy, unspecified (principal); O26.891 Other specified pregnancy related conditions, first trimester; R10.2 Pelvic and perineal pain; Z3A.08 8 weeks gestation of pregnancy
CPT/HCPCS: 36415; 76817; 81001; 84702; 85025; 86900; 86901; 93976; 99284

== ENCOUNTER 2018-12-12 00:55 | Observation (INO) | payer SELFPAY ==
[2018-12-12] MEDS ORDERED: NORMAL SALINE 1000 ML 1,000 ML IV ONE ×2 (01:13→01:37)
[2018-12-12] MEDS ORDERED: MISOPROSTOL 0.2 MG TABLET PR ONE (01:35)
[2018-12-12 01:36] LABS: ABSOLUTE EOSINOPHILS # (AUTO) 0.1 10^3/uL (0.0-0.6); ABSOLUTE LYMPHOCYTES (AUTO) 2.1 10^3/uL (0.5-4.7); ABSOLUTE MONOCYTES (AUTO) 0.4 10^3/uL (0.1-1.4); ABSOLUTE NEUT (AUTO) 5.9 10^3/uL (1.7-8.2); BASOPHILS % (AUTO) 0.2 % (0-2); EOSINOPHILS % (AUTO) 0.7 % (0-6); HEMATOCRIT 21.2 % (36.0-47.0); LYMPHOCYTES % (AUTO) 24.6 % (13-45); MEAN CORPUSCULAR HEMOGLOBIN 28.7 pg (27.0-33.4); MEAN CORPUSCULAR VOLUME 87 fl (80-97); PLATELET COUNT 169 10^3/uL (150-450); RED BLOOD COUNT 2.43 10^6/uL (3.72-5.28); RED CELL DISTRIBUTION WIDTH 13.3 % (11.5-14.0); SEGMENTED NEUTROPHILS % (AUTO) 69.5 % (42-78); TOTAL CELLS COUNTED % (AUTO) 100 %; WHITE BLOOD COUNT 8.5 10^3/uL (4.0-10.5)
[2018-12-12] MEDS ORDERED: NORMAL SALINE 250 ML IV PRN (01:43)
--- NOTE | 2018-12-12 01:46 | ER Document Report ---
ED General - General Chief Complaint: Fainting Stated Complaint: VAGINAL BLEEDING Time Seen by Provider: 12/12/18 01:01 Mode of Arrival: Medic Information source: Patient, Relative Notes: 38-year-old female at approximately 6 weeks presents the emergency department for worsening vaginal bleeding and syncopal episode. Patient was seen in the emergency department earlier today. She had an US that showed IUP. She discharged home with stable vital signs. Case was discussed with Dr. Ray prior to discharge. Patient was told to follow up with [facility] tomorrow for a re-evaluation. While at home, the patient took a shower to get cleaned up and had a syncopal episode. Family assisted her to get out of the bathtub and she was sitting in a recliner. She had a decreased level of consciousness. EMS was contacted. They note that her blood pressure when they arrived was 58/36. Fluids were started en route. TRAVEL OUTSIDE OF THE [place] IN LAST 30 DAYS: No - HPI Onset: Just prior to arrival Onset/Duration: Sudden Quality of pain: Achy, Cramping Severity: Severe Associated symptoms: None Exacerbated by: Denies Relieved by: Denies Similar symptoms previously: Yes Recently seen / treated by doctor: Yes - Related Data Allergies/Adverse Reactions: No Known Allergies Allergy (Verified 10/17/17 12:54) Past Medical History - General Information source: Patient - Social History Smoking Status: Never Smoker Chew tobacco use (# tins/day): No Drug Abuse: None Family History: Reviewed & Not Pertinent Patient has suicidal ideation: No Patient has homicidal ideation: No Renal/ Medical History: Denies: Hx Peritoneal Dialysis Past Surgical History: Reports: Hx Cholecystectomy - Immunizations Immunizations up to date: Yes Hx Diphtheria, Pertussis, Tetanus Vaccination: No Review of Systems - Review of Systems Constitutional: No symptoms reported EENT: No symptoms reported Cardiovascular: Syncope Respiratory: No symptoms reported Gastrointestinal: Abdominal pain Genitourinary: No symptoms reported Female Genitourinary: , Vaginal bleeding Musculoskeletal: No symptoms reported Skin: No symptoms reported Hematologic/Lymphatic: No symptoms reported Neurological/Psychological: No symptoms reported -: Yes All other systems reviewed and negative Physical Exam - Vital signs Vitals: Temp Pulse Resp BP Pulse Ox 97.4 F 78 22 H 89/68 L 100 12/12/18 02:20 12/12/18 02:20 12/12/18 02:20 12/12/18 02:20 12/12/18 02:20 - Notes Notes: PHYSICAL EXAMINATION: GENERAL: Ill appearing. Pale. HEAD: Atraumatic, normocephalic. EYES: Pupils equal round and reactive to light, extraocular movements intact. ENT: Nares patent, oropharynx clear without exudates. Moist mucous membranes. NECK: Normal range of motion, supple without lymphadenopathy LUNGS: Breath sounds clear to auscultation bilaterally and equal. No wheezes rales or rhonchi. HEART: Regular rate and rhythm without murmurs ABDOMEN: Soft, tenderness to palpation in the lower nontender, nondistended abdomen. No guarding, no rebound. Female : Vaginal bleeding from cervical os. Large clots appreciated and removed. No products of conception seen. Musculoskeletal: Normal range of motion, no pitting or edema. No cyanosis. NEUROLOGICAL: Cranial nerves grossly intact. Normal speech, normal gait. Normal sensory, motor exams PSYCH: Normal mood, normal affect. SKIN: Warm, Dry, normal turgor, no rashes or lesions noted. Course - Re-evaluation Re-evalutation: 12/12/18 03:12 Patient ill appearing. Fluids ordered for hypotension secondary to acute blood loss. Labs obtained. Hemoglobin dropped from 12.4 to 7.0. Type and cross ordered. 2 units PRBC ordered. Fluids continued. Dr. Ray, [facility], co ntacted. She recommended cytotec 800 mcg DC. This was given. Patient continues to be hypotensive, having vaginal bleeding, and now less responsive. Will open eyes but not answering questions. 2 units type O negative blood ordered. Dr. Ray contacted again. She came to the bedside to evaluate the patient. Products of consumption removed. Uterus now clamping down. She's agreeable with admission. After 1st unit of blood, patient is more awake and alert. Skin color more pink. She continues to be hypotensive in the 80s-90s systolic. Overall, appears to be improving. 12/12/18 03:31 - Vital Signs Vital signs: Temp Pulse Resp BP Pulse Ox 97.5 F 73 23 H 94/45 L 100 12/12/18 03:16 12/12/18 03:16 12/12/18 03:16 12/12/18 03:16 12/12/18 03:16 - Laboratory Result Diagrams: 12/12/18 01:15 12/12/18 01:15 Laboratory results interpreted by me: 12/12/18 12/12/18 12/12/18 01:15 01:15 01:15 RBC 2.43 L Hgb 7.0 L D Hct 21.2 L Chloride 111 H Calcium 8.0 L Total Protein 5.7 L Albumin 3.1 L Beta HCG, Quant 2530.90 H Crossmatch See Detail Critical Care Note - Critical Care Note Total time excluding time spent on procedures (mins): 60 Discharge - Discharge Clinical Impression: Miscarriage Anemia Qualifiers: Anemia type: unspecified type Qualified Code(s): D64.9 - Anemia, unspecified Condition: Serious Disposition: ADMITTED INPATIENT Admitting Provider: [facility] Admitted: Labor and Delivery
[2018-12-12 01:57] LABS: ALANINE AMINOTRANSFERASE 21 U/L (9-52); ALBUMIN 3.1 g/dL (3.5-5.0); ALKALINE PHOSPHATASE 79 U/L (38-126); ANION GAP 5 (5-19); ASPARTATE AMINO TRANSFERASE 15 U/L (14-36); BILIRUBIN,DIRECT 0.1 mg/dL (0.0-0.4); BILIRUBIN,TOTAL 0.2 mg/dL (0.2-1.3); BLOOD UREA NITROGEN 13 mg/dL (7-20); CARBON DIOXIDE 23 mmol/L (22-30); CHLORIDE 111 mmol/L (98-107); GLUCOSE 95 mg/dL (75-110); POTASSIUM 4.5 mmol/L (3.6-5.0); SODIUM 138.9 mmol/L (137-145); TOTAL PROTEIN 5.7 g/dL (6.3-8.2)
[2018-12-12] MEDS ORDERED: IBUPROFEN 800 MG TABLET PO PRN ×2 (02:31→10:38)
--- NOTE | 2018-12-12 02:31 | PDOC H&P ---
History of Present Illness Admission Date/PCP: 12/12/18 01:51 History of Present Illness: JOSE SIMMONS is a 38 year old female @ 5 wks ega with SAB. returned to ER this AM via EMS after passing large clots of blood at home and began feeling weak and lightheaded. Pt here continued to have large clots and noted to have a 5 point drop in hgb therefore she is being admitted for obs and blood transfusion. Has responded well to cytotec given in the ER. Past Surgical History Past Surgical History: Reports: Cholecystectomy Social History Smoking Status: Never Smoker Frequency of Alcohol Use: None Hx Recreational Drug Use: No Family History Family History: Reviewed & Not Pertinent Parental Family History Reviewed: Yes Children Family History Reviewed: Yes Sibling(s) Family History Reviewed.: Yes Medication/Allergy Home Medications: Metoclopramide HCl [Reglan 10 mg Tablet] 1 tab PO Q8HP PRN #30 tablet 12/07/18 Allergies/Adverse Reactions: No Known Allergies Allergy (Verified 10/17/17 12:54) Physical Exam - Physical Exam Vital Signs: Temp Pulse Resp BP Pulse Ox 97.4 F 78 22 H 89/68 L 100 12/12/18 02:20 12/12/18 02:20 12/12/18 02:20 12/12/18 02:20 12/12/18 02:20 Intake & Output 12/10/18 12/11/18 12/12/18 06:59 06:59 06:59 Intake Total 0 Balance 0 General appearance: PRESENT: mild distress, morbidly obese Head exam: PRESENT: atraumatic Eye exam: PRESENT: conjunctiva pink - Gynecological Exam Labia: normal Urethra: normal Perineum: other - with blood present on perineum and labia Vagina: normal Cervix: normal, other - os closing Uterus: normal Result Laboratory Results: 12/12/18 01:15 12/12/18 01:15 12/12/18 12/12/18 01:15 01:15 WBC 8.5 RBC 2.43 L Hgb 7.0 L D Hct 21.2 L MCV 87 MCH 28.7 MCHC 33.0 RDW 13.3 Plt Count 169 Seg Neutrophils % 69.5 Lymphocytes % 24.6 Monocytes % 5.0 Eosinophils % 0.7 Basophils % 0.2 Absolute Neutrophils 5.9 Absolute Lymphocytes 2.1 Absolute Monocytes 0.4 Absolute Eosinophils 0.1 Absolute Basophils 0.0 Sodium 138.9 Potassium 4.5 Chloride 111 H Carbon Dioxide 23 Anion Gap 5 BUN 13 Creatinine 0.63 Est GFR ( Amer) > 60 Est GFR (Non-Af Amer) > 60 Glucose 95 Calcium 8.0 L Total Bilirubin 0.2 AST 15 ALT 21 Alkaline Phosphatase 79 Total Protein 5.7 L Albumin 3.1 L Assessment & Plan - Diagnosis (1) Anemia due to acute blood loss Is this a current diagnosis for this admission?: Yes (2) Miscarriage Is this a current diagnosis for this admission?: Yes (3) Grand multiparity in labor and delivery, delivered Is this a current diagnosis for this admission?: Yes - Time Time Spent: 30 to 50 Minutes Critical Time spent with patient: Less than 15 minutes Medications reviewed and adjusted accordingly: Yes Anticipated discharge: Home Within: within 24 hours - Inpatient Certification Based on my medical assessment, after consideration of the patient's comorbidities, presenting symptoms, or acuity I expect that the services needed warrant INPATIENT care.: Yes I certify that my determination is in accordance with my understanding of Medicare's requirements for reasonable and necessary INPATIENT services [42 CFR 412.3e].: Yes Medical Necessity: Need For IV Fluids, Need for Pain Control
[2018-12-12] MEDS ORDERED: OXYCODONE-ACETAMINOPHEN 5-325 MG TABLET PO PRN ×5 (02:32→10:38)
[2018-12-12] MEDS ORDERED: IBUPROFEN 800 MG TABLET ONE (02:36)
[2018-12-12] MEDS ORDERED: NORMAL SALINE 1000 ML 1,000 ML IV PRN (03:42)
[2018-12-12] MEDS ORDERED: MISOPROSTOL 0.2 MG TABLET ONE (06:37)
--- NOTE | 2018-12-12 06:37 | EKG REPORT ---
SEVERITY:- NORMAL ECG - SINUS RHYTHM : Confirmed by: Terrance Butts MD 12-Dec-2018 06:37:30
[2018-12-12] MEDS ORDERED: GLUCAGON,HUMAN RECOMB 1 MG INJ SUBCUT PRN (08:50)
[2018-12-12] MEDS ORDERED: DEXTROSE 50%-WATER 25 GM/50 ML DISP.SYRIN IV PRN ×2 (08:50)
[2018-12-12] MEDS ORDERED: DEXTROSE 40% GEL 15 GM TUBE PO PRN ×2 (08:50)
--- NOTE | 2018-12-12 09:30 | PDOC PROGRESS REPORT ---
Subjective Progress Note for:: 12/12/18 Subjective:: Very heavy bleeding and light headed. Reason For Visit: SAB,ANEMIA OF ACUTE BLOOD LOSS Physical Exam - Physical Exam Vital Signs: Temp Pulse Resp BP Pulse Ox 98.1 F 65 18 84/38 L 100 12/12/18 06:40 12/12/18 07:15 12/12/18 07:55 12/12/18 07:55 12/12/18 07:55 Intake & Output 12/11/18 12/12/18 12/13/18 06:59 06:59 06:59 Intake Total 1866 Output Total 65 Balance 1866 -65 Weight 81.647 kg Gentrourinary exam: PRESENT: other - She has very heavy bleeding with a large clots in waste basket and more in the bed. The cervix appears closed but large clots in the vagina. - Gynecological Exam Labia: normal Urethra: normal Perineum: other - with blood present on perineum and labia Vagina: normal Cervix: normal, other - os closing Uterus: normal Result Laboratory Results: 12/12/18 01:15 12/12/18 01:15 12/12/18 12/12/18 12/12/18 01:15 01:15 01:15 WBC 8.5 RBC 2.43 L Hgb 7.0 L D Hct 21.2 L MCV 87 MCH 28.7 MCHC 33.0 RDW 13.3 Plt Count 169 Seg Neutrophils % 69.5 Lymphocytes % 24.6 Monocytes % 5.0 Eosinophils % 0.7 Basophils % 0.2 Absolute Neutrophils 5.9 Absolute Lymphocytes 2.1 Absolute Monocytes 0.4 Absolute Eosinophils 0.1 Absolute Basophils 0.0 Sodium 138.9 Potassium 4.5 Chloride 111 H Carbon Dioxide 23 Anion Gap 5 BUN 13 Creatinine 0.63 Est GFR ( Amer) > 60 Est GFR (Non-Af Amer) > 60 Glucose 95 Calcium 8.0 L Total Bilirubin 0.2 AST 15 ALT 21 Alkaline Phosphatase 79 Total Protein 5.7 L Albumin 3.1 L Blood Type A POSITIVE Antibody Screen NEGATIVE Impressions: She appears to have an incomplete ab. Do to the large amount of bleeding we need to proceed with an emergency suction d and c. Assessment & Plan - Diagnosis (1) Incomplete Is this a current diagnosis for this admission?: Yes (2) Anemia due to acute blood loss Is this a current diagnosis for this admission?: Yes - Time Time Spent with patient: 15-24 minutes Anticipated discharge: Home Within: within 48 hours Disposition: Plan suction d and c. Anesthesia is aware of her recent meal. The d and c is needed despite the recent small meal.
[2018-12-12] MEDS ORDERED: GLYCOPYRROLATE 1 MG/5 ML SYRINGE ONE (09:52)
[2018-12-12] MEDS ORDERED: DEXAMETHASONE SOD PHOSPHATE INJ 4 MG/1 ML VIAL ONE ×2 (09:52→10:01)
[2018-12-12] MEDS ORDERED: ETOMIDATE INJ/PF 20 MG/10 ML SDV IV ONE (09:52)
[2018-12-12] MEDS ORDERED: PHENYLEPHRINE HCL INJ/PF 10 MG/1 ML SDV ONE (09:52)
[2018-12-12] MEDS ORDERED: MIDAZOLAM 2 MG/2 ML INJ ONE (10:01)
[2018-12-12] MEDS ORDERED: FENTANYL CITRATE INJ/PF 100 MCG/2 ML AMPUL ONE (10:01)
[2018-12-12] MEDS ORDERED: ONDANSETRON HCL INJ/PF 4 MG/2 ML SDV ONE (10:01)
[2018-12-12] MEDS ORDERED: PROPOFOL INJ 200 MG/20 ML VIAL IV ONE ×2 (10:01→11:44)
[2018-12-12 10:09] LABS: HEMATOCRIT 23.5 % (36.0-47.0); MEAN CORPUSCULAR HEMOGLOBIN 28.7 pg (27.0-33.4); MEAN CORPUSCULAR HGB CONC 33.5 g/dL (32.0-36.0); MEAN CORPUSCULAR VOLUME 86 fl (80-97); PLATELET COUNT 175 10^3/uL (150-450); RED BLOOD COUNT 2.74 10^6/uL (3.72-5.28); RED CELL DISTRIBUTION WIDTH 13.7 % (11.5-14.0); WHITE BLOOD COUNT 7.8 10^3/uL (4.0-10.5)
[2018-12-12 10:13] LABS: HEMOGLOBIN 7.9 g/dL (12.0-15.5)
[2018-12-12] MEDS ORDERED: MORPHINE SULFATE 10 MG/ML INJ IV PRN (10:37)
[2018-12-12] MEDS ORDERED: DIPHENHYDRAMINE HCL 50 MG/ML VIAL IV PRN (10:37)
[2018-12-12] MEDS ORDERED: PROMETHAZINE HCL INJ 25 MG/1 ML VIAL IV PRN ×2 (10:37)
[2018-12-12] MEDS ORDERED: MEPERIDINE HCL/PF INJ 25 MG/1 ML DISP.SYRIN IV PRN (10:37)
[2018-12-12] MEDS ORDERED: FENTANYL CITRATE INJ/PF 100 MCG/2 ML AMPUL IV PRN ×3 (10:37)
[2018-12-12] MEDS ORDERED: ONDANSETRON HCL INJ/PF 4 MG/2 ML SDV IV PRN (10:37)
[2018-12-12] MEDS ORDERED: RINGERS SOLUTION,LACTATED 1,000 ML IV PRN (10:38)
[2018-12-12] MEDS ORDERED: KETOROLAC TROMETHAMINE INJ/PF 30 MG/1 ML SDV IV PRN (10:38)
--- NOTE | 2018-12-12 10:38 | Operative Report ---
Operative Report DATE OF SURGERY: 12/12/18 PREOPERATIVE DIAGNOSIS: Anemia heavy vaginal bleeding incomplete miscarriage POSTOPERATIVE DIAGNOSIS: Same OPERATION: Suction D&C SURGEON: KENNY LANDON ANESTHESIA: GA TISSUE REMOVED OR ALTERED: Uterine contents COMPLICATIONS: None ESTIMATED BLOOD LOSS: 500 cc INTRAOPERATIVE FINDINGS: Uterine contents PROCEDURE: Patient was taken the OR and placed in supine position. General anesthesia was induced. She is placed in the dorsolithotomy position using Ino stirrups. Perineum and vagina were prepared and draped in sterile fashion her bladder was emptied with a red rubber catheter. A speculum was placed in the vagina and the anterior lip of the cervix was grasped with a ring forceps. The cervix appeared to be dilated at this point. Previously on exam the cervix did not appear dilated. Uterus sounded 10 cm before and 8 cm at the end of the case. Size 10 suction curette was used to evacuate the uterine contents. The bleeding tremendously slowed at this point. All instruments were removed she is placed back in supine position and brought out of anesthesia.
--- NOTE | 2018-12-12 10:45 | Discharge Summary ---
Discharge Summary (SDC) - Discharge Final Diagnosis: Anemia from acute blood loss and incomplete miscarriage. Date of Surgery: 12/12/18 Discharge Date: 12/12/18 Condition: Good Treatment or Instructions: Home, pelvic rest and followup in one week. Prescriptions: Doxycycline Hyclate 100 mg PO BID 7 Days #14 capsule Discharge Diet: Regular Discharge Activity: Balance Activity w/Rest, Pelvic Rest Home Care Assistance: None Needed Report the Following to Your Physician Immediately: Shortness of Breath, Unusual Bleeding - have her begin an over the counter iron
[2018-12-12] MEDS ORDERED: ACETAMINOPHEN 0 MG/0 ML RTUPB IV ONE (11:00)
[2018-12-12 17:48] VITALS: BP 90/40
== END 2018-12-12 18:10 | disposition home or self-care (01) ==
LOC: ER 00:55 → INTOOBSV 01:51 → EH 01:51 → 2S 06:00
PROVIDERS: ADMIT Obstetrics & Gynecology; ATTEND Obstetrics & Gynecology
PROC: 10D17Z9 Manual Extraction of Products of Conception, Retained, Via Natural or Artificial Opening (ICD-10-PCS; principal; 2018-12-12 10:00)
DX: O03.1 Delayed or excessive hemorrhage following incomplete spontaneous abortion (principal); O03.39 Incomplete spontaneous abortion with other complications; D62 Acute posthemorrhagic anemia; I95.89 Other hypotension; Z90.49 Acquired absence of other specified parts of digestive tract
CPT/HCPCS: 59812; 93005; 99291; 86900; 86901; 36415; 36430; 86850; 84702; 85025; 85027; 80053; 86920; 88305 ×2; 93010; P9016; J2250; J1100; J3010; J2370; J2405; J7030; J7120; J2704; J3490 ×2; 1965; G0378; J0131

== ENCOUNTER → 2020-02-21 | Outpatient (CLI) | payer SELFPAY ==
--- NOTE | 2020-02-21 15:03 | RADIOLOGY REPORT (SQ) ---
EXAM DESCRIPTION: U/S OB 14+ TRNABD 1GES W/O DOP IMAGES COMPLETED DATE/TIME: 02/21/2020 1:37 pm REASON FOR STUDY: Z34.82 ENCOUNTER FOR SUPRVSN OF NORMAL , SECOND TRIMESTER Z34.82 ENCOUNT ER FOR SUPRVSN OF NORMAL , SECOND TRI COMPARISON: None. TECHNIQUE: Static and Dynamic grayscale imaging performed of gravid uterus using transabdominal appr oach. Additional selected color Doppler and spectral images recorded. All stored on PACS. LIMITATIONS: None. FINDINGS: FETUSES SEEN:1 EGA: 15 weeks 1 day Calculated using BPD,FL,HC,AC documented on images. No discrepancy with clinical dates. MIKE: 08/13/2020 EFW: 111 grams PERCENTILE: Not applicable. Fetus less than or equal to 20 weeks gestation. LVP: 7.6 cm. PLACENTA: Anterior. GRADE: I PRESENTATION: Breech. ANATOMY: HEART RATE: 150 beats per minute. Anatomy not assessed. MATERNAL ADNEXA: Maternal ovaries not visualized. CERVICAL LENGTH: 3.5 cm. Closed. OTHER: No other significant finding. IMPRESSION: LIVING INTRAUTERINE . ESTIMATED GESTATIONAL AGE 15 weeks 1 day. NO VISUALIZED ANOMALIES. Trimester of : Second trimester - 13 weeks 1 day to 27 weeks 6 days. TECHNICAL DOCUMENTATION: JOB ID: [id number] 2010 [employer]- All Rights Reserved Reading location - IP/workstation name: [email or web address]
== END ==
LOC: RAD 13:04
PROVIDERS: ATTEND Midwife
DX: Z34.82 Encounter for supervision of other normal pregnancy, second trimester (principal); Z3A.15 15 weeks gestation of pregnancy
CPT/HCPCS: 76805

== ENCOUNTER → 2020-03-20 | Outpatient (CLI) | payer SELFPAY ==
--- NOTE | 2020-03-20 15:43 | RADIOLOGY REPORT (SQ) ---
EXAM DESCRIPTION: U/S OB 14+ TRNABD 1GES W/O DOP IMAGES COMPLETED DATE/TIME: 03/20/2020 3:15 pm REASON FOR STUDY: ENCOUNTER FOR SUPRVSN OF NORMAL , SECOND TRIMESTER Z34.82 ENCOUNTER FOR SUPRVSN OF NORMAL , SECOND TRI COMPARISON: 02/21/2020 TECHNIQUE: Static and Dynamic grayscale imaging performed of gravid uterus using transabdominal appr oach. Additional selected color Doppler and spectral images recorded. All stored on PACS. LIMITATIONS: None. FINDINGS: FETUSES SEEN:1 EGA: 19 weeks 2 days Calculated using BPD,FL,HC,AC documented on images. No discrepancy with clinica l dates. MIKE: 08/12/2020 EFW: 282 grams PERCENTILE: Not applicable. Fetus less than or equal to 20 weeks gestation. CARMEN: LVP - 3.8 cm x 4.4 cm PLACENTA: Anterior. PRESENTATION: Variable. ANATOMY: HEART RATE: 152 beats per minute. FOUR CHAMBER HEART: Visualized. THREE VESSEL CORD: Yes. CORD INSERTION: Visualized. KIDNEYS AND BLADDER: Visualized. Appear normal. STOMACH: Visualized. Appears normal. SPINE: Normal as visualized. BRAIN AND LATERAL VENTRICLES: Visualized. Appear normal. OTHER: No other significant finding. MATERNAL ADNEXA: Maternal ovaries not visualized. CERVICAL LENGTH: 4.6 cm Closed. OTHER: No other significant finding. IMPRESSION: LIVING INTRAUTERINE . ESTIMATED GESTATIONAL AGE: 19 weeks 2 days NO VISUALIZED ANOMALIES. Trimester of : Second trimester - 13 weeks 1 day to 27 weeks 6 days. TECHNICAL DOCUMENTATION: JOB ID: [id number] 2010 [employer]- All Rights Reserved Reading location - IP/workstation name: [email or web address]
== END ==
LOC: RAD 14:26
PROVIDERS: ATTEND Midwife
DX: Z34.82 Encounter for supervision of other normal pregnancy, second trimester (principal); Z3A.19 19 weeks gestation of pregnancy
CPT/HCPCS: 76805

== ENCOUNTER 2020-05-17 12:19 | Emergency (ER) | payer SELFPAY ==
--- NOTE | 2020-05-17 12:43 | ER Document Report ---
ED Medical Screen (RME) - General Chief Complaint: Chest Pain Stated Complaint: CHEST PAIN Time Seen by Provider: 05/17/20 12:35 Primary Care Provider: CARLOS LANDON CNM [Primary Care Provider] - Follow up as needed Notes: Patient is a G7, P6 40-year-old female presents emergency department with a chief complaint of chest pain. Patient states that she saw the health department this morning, who is taking care of her for her . They referred her to the emergency department for further work-up of her chest pain. Patient states that she has a small amount of pressure in her abdomen and her lower back, but denies any contraction feelings. Patient states that she [facility] not seen [facility], only the health department. Exam: Visibly . S1, S2. Sinus rhythm on twelve-lead EKG. Most information given by the nurse, as the patient is primarily Greek- speaking, but speaks a little bit of Slovenian. I have greeted and performed a rapid initial assessment of this patient. A co mprehensive ED assessment and evaluation of the patient, analysis of test results and completion of medical decision making process will be conducted by an additional ED providers. TRAVEL OUTSIDE OF THE [place] IN LAST 30 DAYS: No - Related Data Allergies/Adverse Reactions: No Known Allergies Allergy (Verified 10/17/17 12:54) Past Medical History - Social History Frequency of alcohol use: None Drug Abuse: None Renal/ Medical History: Denies: Hx Peritoneal Dialysis Past Surgical History: Reports: Hx Cholecystectomy - Immunizations Immunizations up to date: Yes Hx Diphtheria, Pertussis, Tetanus Vaccination: No Physical Exam - Vital signs Vitals: Temp Pulse Resp BP Pulse Ox 98.1 F 81 18 97/51 L 98 05/17/20 12:31 05/17/20 12:05/17/20 12:05/17/20 12:05/17/20 12:31 Course - Vital Signs Vital signs: Temp Pulse Resp BP Pulse Ox 98.1 F 81 18 97/51 L 98 05/17/20 12:31 05/17/20 12:31 05/17/20 12:05/17/20 12:05/17/20 12:31 Doctor's Discharge - Discharge Referrals: CARLOS LANDON CNM [Primary Care Provider] - Follow up as needed
[2020-05-17 13:30] LABS: ABSOLUTE EOSINOPHILS # (AUTO) 0.1 10^3/uL (0.0-0.6); ABSOLUTE LYMPHOCYTES (AUTO) 1.7 10^3/uL (0.5-4.7); ABSOLUTE MONOCYTES (AUTO) 0.4 10^3/uL (0.1-1.4); ABSOLUTE NEUT (AUTO) 6.2 10^3/uL (1.7-8.2); BASOPHILS % (AUTO) 0.3 % (0-2); EOSINOPHILS % (AUTO) 1.6 % (0-6); HEMATOCRIT 33.5 % (36.0-47.0); HEMOGLOBIN 11.3 g/dL (12.0-15.5); LYMPHOCYTES % (AUTO) 20.4 % (13-45); MEAN CORPUSCULAR HEMOGLOBIN 29.2 pg (27.0-33.4); MEAN CORPUSCULAR HGB CONC 33.7 g/dL (32.0-36.0); MEAN CORPUSCULAR VOLUME 87 fl (80-97); MONOCYTES % (AUTO) 4.6 % (3-13); PLATELET COUNT 233 10^3/uL (150-450); RED BLOOD COUNT 3.87 10^6/uL (3.72-5.28); RED CELL DISTRIBUTION WIDTH 13.8 % (11.5-14.0); SEGMENTED NEUTROPHILS % (AUTO) 73.1 % (42-78); TOTAL CELLS COUNTED % (AUTO) 100 %; WHITE BLOOD COUNT 8.4 10^3/uL (4.0-10.5)
--- NOTE | 2020-05-17 13:32 | RADIOLOGY REPORT (SQ) ---
EXAM DESCRIPTION: CHEST SINGLE VIEW IMAGES COMPLETED DATE/TIME: 05/17/2020 1:05 pm REASON FOR STUDY: chest pain COMPARISON: None. EXAM PARAMETERS: NUMBER OF VIEWS: One view. TECHNIQUE: Single frontal radiographic view of the chest acquired. RADIATION DOSE: NA LIMITATIONS: Low lung volumes. FINDINGS: LUNGS AND PLEURA: No opacities, masses or pneumothorax. No pleural effusion. MEDIASTINUM AND HILAR STRUCTURES: No masses. Contour normal. HEART AND VASCULAR STRUCTURES: Heart normal in size. Normal vasculature. BONES: No acute findings. HARDWARE: None in the chest. OTHER: No other significant finding. IMPRESSION: Negative chest allowing for low lung volumes. TECHNICAL DOCUMENTATION: JOB ID: [id number] 2010 [employer]- All Rights Reserved Reading location - IP/workstation name: [email or web address]
[2020-05-17 13:46] LABS: APPEARANCE,URINE SLIGHTLY-CLOUDY; BILIRUBIN,URINE NEGATIVE (NEGATIVE); COLOR,URINE YELLOW; GLUCOSE, URINE NEGATIVE (NEGATIVE); KETONES,URINE 20 mg/dL (NEGATIVE); LEUKOCYTE ESTERASE,URINE TRACE (NEGATIVE); NITRITE,URINE NEGATIVE (NEGATIVE); PROTEIN,URINE NEGATIVE (NEGATIVE); URINE SPECIFIC GRAVITY 1.019; UROBILINOGEN,URINE NEGATIVE mg/dL (<2.0)
[2020-05-17 13:50] LABS: ALBUMIN 3.5 g/dL (3.5-5.0); ALKALINE PHOSPHATASE 118 U/L (38-126); ANION GAP 7 (5-19); ASPARTATE AMINO TRANSFERASE 19 U/L (14-36); BILIRUBIN,TOTAL 0.4 mg/dL (0.2-1.3); BLOOD UREA NITROGEN 7 mg/dL (7-20); CALCIUM 8.7 mg/dL (8.4-10.2); CARBON DIOXIDE 20 mmol/L (22-30); CHLORIDE 107 mmol/L (98-107); GLUCOSE 74 mg/dL (75-110); TOTAL PROTEIN 6.8 g/dL (6.3-8.2)
--- NOTE | 2020-05-17 15:47 | ER Document Report ---
ED General - General Chief Complaint: Chest Pain Stated Complaint: CHEST PAIN Time Seen by Provider: 05/17/20 12:35 Primary Care Provider: KENNY LANDON MD [ACTIVE STAFF] - Follow up in 3-5 days CARLOS LANDON CNM [NO LOCAL MD] - Follow up as needed Notes: 40-year-old G8, at 28 weeks presents with chest pressure. 1 week. Almost all day every day nonexertional nonradiating. No shortness of breath nausea or vomiting. No sweating. No history of cardiac issues but had some heart testing about 10 years ago. Denies leg swelling beyond normal . Feel baby move today. heart tones auscultated in the ED prior to my evaluation. TRAVEL OUTSIDE OF THE [place] IN LAST 30 DAYS: No - Related Data Allergies/Adverse Reactions: No Known Allergies Allergy (Verified 10/17/17 12:54) Past Medical History - Social History Smoking Status: Never Smoker Frequency of alcohol use: None Drug Abuse: None Family History: Reviewed & Not Pertinent Renal/ Medical History: Denies: Hx Peritoneal Dialysis Past Surgical History: Reports: Hx Cholecystectomy - Immunizations Immunizations up to date: Yes Hx Diphtheria, Pertussis, Tetanus Vaccination: No Review of Systems - Review of Systems Notes: REVIEW OF SYSTEMS GEN: Denies fever, chills, weight loss ENT: Denies sore throat, nasal discharge, ear pain EYES: Denies blurry vision, eye pain, discharge CV: Chest pressure RESP: Denies cough, shortness of breath, wheezing GI: Denies abdominal pain, nausea, vomiting, diarrhea MSK: Denies joint pain/swelling, edema, SKIN: Denies rash, skin lesions LYMPH: Denies swollen glands/lymph nodes NEURO: Denies headache, focal weakness or numbness, dizziness PSYCH: Denies depression, suicidal or homicidal ideation PHYSICAL EXAMINATION General: No acute distress, well-nourished Head: Atraumatic, normocephalic ENT: Mouth normal, oropharynx moist, no exudates or tonsillar enlargement Eyes: Conjunctiva normal, pupils equal, lids normal Neck: No JVD, supple, no guarding CVS: Normal rate, regular rhythm, no murmurs Resp: No resp distress, equal and normal breath sounds bilaterally Abdominal: Gravid, nontender, ondistended, soft, no tenderness to palpation, no rebound or guarding Ext: No deformities, no edema, normal range of motion in upper and lower ext Back: No CVA or midline TTP Skin: No rash, warm Lymphatic: No lymphadeopathy noted Neuro: Awake, alert. Face symmetric. GCS 15. Physical Exam - Vital signs Vitals: Temp Pulse Resp BP Pulse Ox 98.1 F 81 18 97/51 L 98 05/17/20 12:31 05/17/20 12:31 05/17/20 12:31 05/17/20 12:31 05/17/20 12:31 Course - Re-evaluation Re-evalutation: 05/17/20 15:44 Patient presents with chest pressure for a week in the setting of pregnancyshe has no cardiac history her pain/pressure is not consistent with PE her EKG does not show ischemic changes or can changes consistent with right heart strain her heart rate is normal and her labs are normal heart tones auscultated positive movement doubt distress or other issues there Differential still broad and could be musculoskeletal unlikely to be severe pericarditis based on EKG and has less likelihood of being ACS Ongoing to schedule her with women's health by calling them on the phone, reassurance given negative troponin and several days of pain, and discharged to follow-up with a more advanced office them done at health department I have discussed with the patient there likely diagnosis, aftercare plan, follow-up plans and my usual and customary return precautions. They verbalized understanding of this. - Vital Signs Vital signs: Temp Pulse Resp BP Pulse Ox 98.0 F 81 16 109/59 L 100 05/17/20 16:08 05/17/20 12:31 05/17/20 16:08 05/17/20 16:08 05/17/20 16:08 - Laboratory Result Diagrams: 05/17/20 12:51 05/17/20 12:51 Laboratory results interpreted by me: 05/17/20 05/17/20 05/17/20 12:51 12:51 12:51 Hgb 11.3 L Hct 33.5 L Sodium 134.4 L Carbon Dioxide 20 L Creatinine 0.45 L Glucose 74 L Urine Ketones 20 H Ur Leukocyte Esterase TRACE H - EKG Interpretation by Me EKG shows normal: Sinus rhythm Rate: Normal Rhythm: NSR When compared to previous EKG there are: No significant change - Patient had 2 EKGs in the ED. The first 1 had a wavy baseline there was a possibility of some ST or T wave changes in the precordial/anterior leads, on repeat EKG this is found to be essentially artifacts. Given 2 seconds -1 hold Discharge - Discharge Clinical Impression: Chest pressure Condition: Good Disposition: HOME, SELF-CARE Referrals: CARLOS LANDON CNM [NO LOCAL MD] - Follow up as needed KENNY LANDON MD [ACTIVE STAFF] - Follow up in 3-5 days
[2020-05-17 16:15] VITALS: BP 109/59
--- NOTE | 2020-05-17 23:08 | EKG REPORT ---
SEVERITY:- NORMAL ECG - SINUS RHYTHM : Confirmed by: Jessy Stinson MD 17-May-2020 23:07:54
--- NOTE | 2020-05-17 23:08 | EKG REPORT ---
SEVERITY:- NORMAL ECG - SINUS RHYTHM : Confirmed by: Jessy Stinson MD 17-May-2020 23:07:48
== END 2020-05-17 16:15 | disposition home or self-care (01) ==
LOC: ER 12:19
DX: O26.93 Pregnancy related conditions, unspecified, third trimester (principal); R07.9 Chest pain, unspecified; M54.5 Low back pain; Z3A.28 28 weeks gestation of pregnancy; Z90.49 Acquired absence of other specified parts of digestive tract
CPT/HCPCS: 36415; 71045; 80053; 81001; 83735; 84484; 85025; 93005; 93010; 99285

== ENCOUNTER → 2020-06-07 | Outpatient (CLI) | payer SELFPAY ==
--- NOTE | 2020-06-07 13:40 | RADIOLOGY REPORT (SQ) ---
EXAM DESCRIPTION: U/S OB 14+ TRNABD 1GES W/O DOP IMAGES COMPLETED DATE/TIME: 06/07/2020 1:14 pm REASON FOR STUDY: Z34.83 ENCOUNTER FOR SUPRVSN OF NORMAL , THIRD TRIMESTER Z34.83 ENCOUNTE R FOR SUPRVSN OF NORMAL , THIRD TRIM COMPARISON: 03/20/2020 TECHNIQUE: Static and Dynamic grayscale imaging performed of gravid uterus using transabdominal appr oach. Additional selected color Doppler and spectral images recorded. All stored on PACS. LIMITATIONS: None. FINDINGS: FETUSES SEEN:1 EGA: 30 weeks 3 days Calculated using BPD,FL,HC,AC documented on images. No discrepancy with clinica l dates. MIKE: 08/13/2020 EFW: 1556+/- 230 grams PERCENTILE: 45th CARMEN: 21.8 cm PLACENTA: Anterior grade 2 PRESENTATION: Cephalic. HEART RATE: 132 beats per minute. MATERNAL ADNEXA: Maternal ovaries not visualized. CERVICAL LENGTH: 3 cm. Closed. OTHER: No other significant finding. IMPRESSION: LIVING INTRAUTERINE . ESTIMATED GESTATIONAL AGE 30 weeks 3 days NO VISUALIZED ANOMALIES. Trimester of : Third trimester - 28 weeks to delivery. TECHNICAL DOCUMENTATION: JOB ID: [id number] 2010 [employer]- All Rights Reserved Reading location - IP/workstation name: [email or web address]
== END ==
LOC: RAD 12:55
PROVIDERS: ATTEND Midwife
DX: Z34.83 Encounter for supervision of other normal pregnancy, third trimester (principal)
CPT/HCPCS: 76805

== ENCOUNTER 2020-07-12 11:01 | Outpatient (CLI) | payer SELFPAY ==
[2020-07-12 11:34] LABS: APPEARANCE,URINE CLEAR; BILIRUBIN,URINE NEGATIVE (NEGATIVE); COLOR,URINE YELLOW; GLUCOSE, URINE NEGATIVE (NEGATIVE); KETONES,URINE NEGATIVE (NEGATIVE); LEUKOCYTE ESTERASE,URINE NEGATIVE (NEGATIVE); NITRITE,URINE NEGATIVE (NEGATIVE); PROTEIN,URINE NEGATIVE (NEGATIVE); URINE SPECIFIC GRAVITY 1.011
[2020-07-12 11:35] LABS: BACTERIA (WET MOUNT) 3+ BACTERIA SEEN; EPITHELIALS (WET MOUNT) 4+ EPITHELIALS SEEN; RBCS (WET MOUNT) NO RBCS SEEN; T.VAGINALIS (WET MOUNT) NO TRICHOMONAS SEEN; WBCS (WET MOUNT) 2+ WBCS SEEN; YEAST (WET MOUNT) NO YEAST SEEN
--- NOTE | 2020-07-12 12:36 | Non Stress Test Report ---
Non Stress Test Datetime Report Generated by CPN: 07/12/2020 12:35 DEMOGRAPHIC EGA NST: 36.2 INDICATION Indication for Study (NST) Other: Labor Check, AMA MONITORING Monitor Explained: Monitor Explained; Test Explained; Patient Verbalized Understanding Time on Monitor: 07/12/2020 11:50 Time on Monitor: 07/12/2020 11:50 Time off Monitor: 07/12/2020 12:11 Time off Monitor: 07/12/2020 12:11 NST Duration: 21 NST Duration: 21 NST INTERVENTIONS NST Interventions: PO Hydration; Reposition Patient Physician Notified NST: AWynn,CNM BABY A: [id number] BABY A Movement : Present Contraction Frequency : None FHR Baseline : 135 Accelerations : 15X15 Decelerations : None Variability : Moderate 6-25bpm NST Review: Meets Criteria for Reactive NST NST Review and Verified By : PRERNA Washburn Results: Reactive NST REPORT Report Trigger: Send Report
[2020-07-12 13:09] LABS: CHLAM PCR NOT DETECTED (NOT DETECT)
[2020-07-12 13:43] LABS: URINE AMPHETAMINES SCREEN NEGATIVE; URINE BARBITURATES SCREEN NEGATIVE; URINE BENZODIAZEPINES SCREEN NEGATIVE; URINE COCAINE SCREEN NEGATIVE; URINE MARIJUANA (THC) SCREEN NEGATIVE; URINE METHADONE SCREEN NEGATIVE; URINE PHENCYCLIDINE SCREEN NEGATIVE
== END 2020-07-12 12:28 | disposition home or self-care (01) ==
LOC: LC 11:01
PROVIDERS: ATTEND Obstetrics & Gynecology Gynecology
DX: O23.593 Infection of other part of genital tract in pregnancy, third trimester (principal); B96.89 Other specified bacterial agents as the cause of diseases classified elsewhere; O09.523 Supervision of elderly multigravida, third trimester; Z3A.36 36 weeks gestation of pregnancy
CPT/HCPCS: 59025; 80307; 81001; 87210; 87491; 87591; 94760

== ENCOUNTER 2020-07-15 15:47 | Outpatient (CLI) | payer SELFPAY ==
--- NOTE | 2020-07-15 16:20 | Non Stress Test Report ---
Non Stress Test Datetime Report Generated by CPN: 07/15/2020 16:20 DEMOGRAPHIC Test Number: 2 EGA NST: 36.5 INDICATION Indication for Study (NST) Other: Advanced Maternal Age VITAL SIGNS Temperature - NST: 98.4 Pulse - NST: 80 RESP - NST: 18 NBPSYS NST: 100 NBPDIA NST: 56 MONITORING Monitor Explained: Monitor Explained; Test Explained; Patient Verbalized Understanding Time on Monitor: 07/15/2020 15:54 Time off Monitor: 07/15/2020 16:17 NST Duration: 23 NST INTERVENTIONS NST Interventions: PO Hydration; Reposition Patient Physician Notified NST: N Snyder BABY A: [id number] BABY A Movement : Present Contraction Frequency : 0 FHR Baseline : 140 Accelerations : 15X15 Decelerations : None Variability : Moderate 6-25bpm NST Review: Meets Criteria for Reactive NST NST Review and Verified By : Norman Miri RN NST REPORT Report Trigger: Send Report
--- NOTE | 2020-07-15 18:20 | RADIOLOGY REPORT (SQ) ---
EXAM DESCRIPTION: U/S OB LIMITED IMAGES COMPLETED DATE/TIME: 07/15/2020 3:45 pm REASON FOR STUDY: check CARMEN COMPARISON: 06/07/2020 TECHNIQUE: Limited transabdominal grayscale ultrasound for evaluation of specific requested obstetri yamini parameters. LIMITATIONS: None. FINDINGS: CERVICAL LENGTH: 2.5 cm Closed. CARMEN: 10.3 cm. FHR: 139 beats per minute. PRESENTATION: Cephalic. PLACENTA: The placenta is anterior. There is loss of the normal retro placental space with increased vascularity posterior to the placenta, concerning for morbidity adherent placenta such as placenta a ccreta or placenta increta. This is incompletely evaluated on this examination. ANATOMY: Not assessed OTHER: No other significant findings. IMPRESSION: Normal CARMEN. Loss of normal retroplacental space with increased vascularity posterior to the placenta, concerning for morbidly adherent placenta such as placenta accreta or placenta increta . Recommend further evaluation of the placenta with diagnostic ultrasound for further characterizati on and evaluation. Trimester of : Third trimester - 28 weeks to delivery. COMMENT: Findings and recommendations were discussed with Dr. Andre on 07/15/2020 at 1814 hours Hakan rn time. TECHNICAL DOCUMENTATION: JOB ID: [id number] [email or web address]- All Rights Reserved Reading location - IP/workstation name: [email or web address]
== END 2020-07-15 16:41 | disposition home or self-care (01) ==
LOC: LC 15:47
PROVIDERS: ATTEND Obstetrics & Gynecology
DX: O09.523 Supervision of elderly multigravida, third trimester (principal); Z3A.36 36 weeks gestation of pregnancy
CPT/HCPCS: 59025; 76815

== ENCOUNTER 2020-07-25 19:51 | Outpatient (CLI) | payer MEDICAID ==
--- NOTE | 2020-07-25 21:38 | RADIOLOGY REPORT (SQ) ---
US PELVIS HISTORY: Pelvic pain. COMPARISON: 07/15/2020 TECHNIQUE: Grayscale, color Doppler, and spectral Doppler ultrasound images of the pelvis were obtained. FINDINGS: There is a single intrauterine gestation in vertex presentation with a heart rate of 137 bpm. Placenta is anterior with increased vasculature posterior to the placenta, also seen on prior study, nonspecific. Cervix is closed and measures 3.3 cm. CARMEN is 14.9 cm with LBP of 6.0 x 5.3 cm. Estimated gestational age is 38 weeks 1 day. IMPRESSION: Single live IUP as above.
== END 2020-07-25 21:19 | disposition home or self-care (01) ==
LOC: LC 19:51
PROVIDERS: ATTEND Obstetrics & Gynecology
DX: O26.892 Other specified pregnancy related conditions, second trimester (principal); R10.2 Pelvic and perineal pain; Z3A.38 38 weeks gestation of pregnancy
CPT/HCPCS: 59025; 76815

== ENCOUNTER → 2020-07-25 | Outpatient (CLI) | payer MEDICAID | LOC: RAD 14:19 | PROVIDERS: ATTEND Midwife | DX: Z53.9 Procedure and treatment not carried out, unspecified reason (principal) | CPT/HCPCS: 59025 ==

== ENCOUNTER 2020-07-30 04:32 | Outpatient (CLI) | payer MEDICAID ==
[2020-07-30 05:07] LABS: APPEARANCE,URINE CLEAR; BILIRUBIN,URINE NEGATIVE (NEGATIVE); COLOR,URINE YELLOW; GLUCOSE, URINE NEGATIVE (NEGATIVE); KETONES,URINE NEGATIVE (NEGATIVE); LEUKOCYTE ESTERASE,URINE NEGATIVE (NEGATIVE); NITRITE,URINE NEGATIVE (NEGATIVE); PROTEIN,URINE NEGATIVE (NEGATIVE); URINE SPECIFIC GRAVITY 1.009; UROBILINOGEN,URINE NEGATIVE mg/dL (<2.0)
[2020-07-30 05:23] LABS: URINE AMPHETAMINES SCREEN NEGATIVE; URINE BARBITURATES SCREEN NEGATIVE; URINE BENZODIAZEPINES SCREEN NEGATIVE; URINE COCAINE SCREEN NEGATIVE; URINE MARIJUANA (THC) SCREEN NEGATIVE; URINE METHADONE SCREEN NEGATIVE; URINE PHENCYCLIDINE SCREEN NEGATIVE
--- NOTE | 2020-07-30 05:38 | Non Stress Test Report ---
Non Stress Test Datetime Report Generated by CPN: 07/30/2020 05:38 DEMOGRAPHIC EGA NST: 38.6 VITAL SIGNS Temperature - NST: 98.0 Pulse - NST: 69 RESP - NST: 17 NBPSYS NST: 101 NBPDIA NST: 56 URINE RESULTS Urine Protein, NST: Negative Urine Ketones - NST: Negative Urine Glucose - NST: Negative Urine Blood - NST: Negative MONITORING Monitor Explained: Monitor Explained; Test Explained; Patient Verbalized Understanding Time on Monitor: 07/30/2020 04:47 Time off Monitor: 07/30/2020 05:25 NST Duration: 38 NST INTERVENTIONS NST Interventions: PO Hydration; Reposition Patient Physician Notified NST: Dr Andre BABY A Movement : Present Contraction Frequency : x1 FHR Baseline : 130 Accelerations : 15X15 Decelerations : None Variability : Moderate 6-25bpm NST Review: Meets Criteria for Reactive NST NST Review and Verified By : Dianne Allen RN NST Results: Reactive NST REPORT Report Trigger: Send Report
== END 2020-07-30 05:38 | disposition home or self-care (01) ==
LOC: LC 04:32
PROVIDERS: ATTEND Obstetrics & Gynecology
DX: O36.8130 Decreased fetal movements, third trimester, not applicable or unspecified (principal); Z3A.38 38 weeks gestation of pregnancy
CPT/HCPCS: 80307; 81005

== ENCOUNTER 2020-08-05 11:37 | Outpatient (CLI) | payer SELFPAY ==
[2020-08-05 12:14] LABS: APPEARANCE,URINE CLEAR; BILIRUBIN,URINE NEGATIVE (NEGATIVE); COLOR,URINE STRAW; GLUCOSE, URINE NEGATIVE (NEGATIVE); KETONES,URINE NEGATIVE (NEGATIVE); LEUKOCYTE ESTERASE,URINE NEGATIVE (NEGATIVE); NITRITE,URINE NEGATIVE (NEGATIVE); PROTEIN,URINE NEGATIVE (NEGATIVE); URINE SPECIFIC GRAVITY 1.003; UROBILINOGEN,URINE NEGATIVE mg/dL (<2.0)
[2020-08-05 12:50] LABS: URINE AMPHETAMINES SCREEN NEGATIVE; URINE BARBITURATES SCREEN NEGATIVE; URINE BENZODIAZEPINES SCREEN NEGATIVE; URINE COCAINE SCREEN NEGATIVE; URINE MARIJUANA (THC) SCREEN NEGATIVE; URINE METHADONE SCREEN NEGATIVE; URINE PHENCYCLIDINE SCREEN NEGATIVE
--- NOTE | 2020-08-05 13:19 | RADIOLOGY REPORT (SQ) ---
EXAM DESCRIPTION: U/S OB LIMITED IMAGES COMPLETED DATE/TIME: 08/05/2020 12:45 pm REASON FOR STUDY: CARMEN COMPARISON: 07/25/2020. TECHNIQUE: Limited transvaginal grayscale ultrasound for evaluation of specific requested obstetrica l parameters. LIMITATIONS: None. FINDINGS: CERVICAL LENGTH: 2.0 cm. Closed. CARMEN: 13.2 cm. FHR: 126 beats per minute. PRESENTATION: Cephalic. PLACENTA: Anterior ANATOMY: Not assessed OTHER: No other significant findings. IMPRESSION: LIMITED OBSTETRICAL ULTRASOUND WITH MEASURED PARAMETERS DELINEATED ABOVE. Trimester of : Third trimester - 28 weeks to delivery. TECHNICAL DOCUMENTATION: JOB ID: [id number] [employer]- All Rights Reserved Reading location - IP/workstation name: [email or web address]
--- NOTE | 2020-08-05 13:45 | Non Stress Test Report ---
Non Stress Test Datetime Report Generated by CPN: 08/05/2020 13:45 DEMOGRAPHIC EGA NST: 39.5 INDICATION Indication for Study (NST) Other: contractions/ CARMEN VITAL SIGNS Temperature - NST: 98.5 Pulse - NST: 72 RESP - NST: 16 NBPSYS NST: 114 NBPDIA NST: 59 MONITORING Monitor Explained: Monitor Explained; Test Explained; Patient Verbalized Understanding Time on Monitor: 08/05/2020 11:44 Time off Monitor: 08/05/2020 13:16 NST Duration: 92 NST INTERVENTIONS NST Interventions: PO Hydration Physician Notified NST: Dr. Trotter BABY A: [id number] BABY A Movement : Present Contraction Frequency : irregular, occasional FHR Baseline : 130 Accelerations : 15X15 Decelerations : None Variability : Moderate 6-25bpm NST Review: Meets Criteria for Reactive NST NST Review and Verified By : PRERNA Corey NSElis Results: Reactive NST REPORT Report Trigger: Send Report
== END 2020-08-05 14:30 | disposition home or self-care (01) ==
LOC: LC 11:37
PROVIDERS: ATTEND Obstetrics & Gynecology
DX: O47.1 False labor at or after 37 completed weeks of gestation (principal); O09.523 Supervision of elderly multigravida, third trimester; Z3A.39 39 weeks gestation of pregnancy; Z02.83 Encounter for blood-alcohol and blood-drug test
CPT/HCPCS: 59025; 76815; 80307; 81005

== ENCOUNTER 2020-08-15 06:40 | Inpatient (IN) | payer SELFPAY ==
[2020-08-15] MEDS ORDERED: RINGERS SOLUTION,LACTATED 1,000 ML IV ONE (06:59)
[2020-08-15] MEDS ORDERED: RINGERS SOLUTION,LACTATED 1,000 ML IV PRN (06:59)
[2020-08-15] MEDS ORDERED: OXYTOCIN/0.9 % SODIUM CHLORIDE 30 UNIT/500 ML RTUINJ IV PRN (07:00)
--- NOTE | 2020-08-15 07:13 | Admission Physical ---
Datetime Report Generated by CPN: 08/15/2020 07:13 CURRENT ADMISSION Chief Complaint: Scheduled Induction of Labor Admit Impression : Postterm, Intrauterine Admit Plan: Admit to Unit; Initiate Labor Induction Protocol ALLERGIES Medication Allergies: No Medication Allergies: No Known Allergies (08/15/2020) Latex: No Latex Allergies Food Allergies: None Environmental Allergies: None OBSTETRICAL HISTORY EDC: 08/07/2020 00:00 : 8 Para: 6 Term: 6 : 0 SAB: 1 Ectopic: 0 Livin Cesareans: 0 VBACs: 0 Multiple Births: 0 Gestational Diabetes: No Rh Sensitization: No Incompetent Cervix: No MANGO: No Infertility: No ART Treatment: No Uterine Anomaly: Yes IUGR: No Hx Previous C/S: No Macrosomia: No Hx Loss/Stillborn: No PIH: No Hx : No Placenta Previa/Abruption: No Depression/PP Depression: No PTL/PROM: No Post Hemorrhage: No Current Procedures: Ultrasound; NST Obstetrical History Comments: G1- 1999 G2-2003 G3- 2005 G4 SAB 2013 2015 G2016 G8- current, AMA SEE RECORDS Alcohol: No Marijuana : No Cocaine: No Other Illicit Drugs: No Cigarettes: Never Smoker. 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 Heart Disease: No Hosp/Surgery: Yes Autoimmune Disorder: No Anesthetic Complications: No Kidney Disease: No Abnormal Pap Smear: Yes Neuro/Epilepsy: No Psychiatric Disorders: No Other Medical Diseases: No Hepatitis/Liver Disease: No Significant Family History: No Varicosities/Phlebitis: No Trauma/Violence : No Thyroid Dysfunction: No Medical History Comments: abnormal pap in 2011 with LEEP, blood transfusion with SAB in 2012, cholecystectomy, childbirth x6 INFECTIOUS HISTORY Gonorrhea: No Genital Herpes: No Chlamydia: No Tuberculosis: No Syphilis: No Hepatitis: No HIV/AIDS Exposure: No Rash or Viral Illness: No HPV: No PHYSICAL EXAM General: Normal HEENT: Normal Neurologic: Normal Thyroid: Normal Heart: Normal Lungs: Normal Breast: Normal Back: Normal Abdomen: Normal Genitourinary Exam: Normal Extremities: Normal DTRs: Normal Pelvic Type: Adequate Vital Signs: Reviewed; Within Normal Limits VAGINAL EXAM Dilatation: 3 Effacement: 50 Station: -2 Contraction Comments: IRREG CTX MEMBRANES Pooling: Positive FETUS A EGA: 41.1 Monitoring: External US FHR- Baseline: 135 Variability: Moderate 6-25bpm Accelerations: 15X15 Decelerations: None FHR Category: Category I Presentation: Vertex Admit Comment: @ 41.1 wks EGA for IOL : post dates -Admit to LDR -NPO and IVFs: LR at 125 cc/hr after 1 liter bolus -CEFM and toco -GBS negative -Plan for Pitocin and AROM when able -Anticipate , hx of 6 prior SVDs. PLANS FOR LABOR AND DELIVERY Labor and Delivery: None Pain Management: Epidural Feeding Preference: Breast Benefit of Breast Feed Discussed: Yes INFORMED CONSENT Informed Consent Obtained: Vaginal Delivery; Induction of Labor; Vacuum/Forceps Assist; Risks, Benefits and Alternatives Discussed Signature: with User ID: Diana : with User ID: Diana
[2020-08-15 08:06] LABS: HEMATOCRIT 34.2 % (36.0-47.0); HEMOGLOBIN 11.7 g/dL (12.0-15.5); MEAN CORPUSCULAR HEMOGLOBIN 28.8 pg (27.0-33.4); MEAN CORPUSCULAR HGB CONC 34.3 g/dL (32.0-36.0); MEAN CORPUSCULAR VOLUME 84 fl (80-97); RED BLOOD COUNT 4.08 10^6/uL (3.72-5.28); RED CELL DISTRIBUTION WIDTH 14.3 % (11.5-14.0); WHITE BLOOD COUNT 11.3 10^3/uL (4.0-10.5)
[2020-08-15 08:09] LABS: URINE AMPHETAMINES SCREEN NEGATIVE; URINE BARBITURATES SCREEN NEGATIVE; URINE BENZODIAZEPINES SCREEN NEGATIVE; URINE COCAINE SCREEN NEGATIVE; URINE MARIJUANA (THC) SCREEN NEGATIVE; URINE METHADONE SCREEN NEGATIVE; URINE PHENCYCLIDINE SCREEN NEGATIVE
[2020-08-15 08:22] LABS: ABSOLUTE LYMPHOCYTES# (MANUAL) 3.4 10^3/uL (0.5-4.7); ABSOLUTE MONOCYTES # (MANUAL) 0.7 10^3/uL (0.1-1.4); BASOPHILS % (MANUAL) 2 % (0-2); EOSINOPHILS % (MANUAL) 2 % (0-6); LYMPHOCYTES % (MANUAL) 30 % (13-45); METAMYELOCYTES % (MANUAL) 2 % (0-1); MONOCYTES % (MANUAL) 6 % (3-13); SEGMENTED NEUTROPHILS % (MAN) 58 % (42-78); TOTAL CELLS COUNTED 100
[2020-08-15 08:24] LABS: ANISOCYTOSIS SLIGHT; PLATELET COMMENT ADEQUATE; POLYCHROMASIA SLIGHT
[2020-08-15 08:25] LABS: PLATELET CLUMPS PRESENT; PLATELET COUNT 200 10^3/uL (150-450)
== END 2020-08-15 10:45 | disposition short-term general hospital (02) | DRG 776 ==
LOC: LR 06:40
PROVIDERS: ADMIT Obstetrics & Gynecology Gynecology; ATTEND Obstetrics & Gynecology Gynecology
DX: O43.213 Placenta accreta, third trimester (principal); O48.0 Post-term pregnancy; Z3A.41 41 weeks gestation of pregnancy
CPT/HCPCS: 36415; 80307; 85025; 86592; 86850; 86900; 86901